=== PATIENT | male | born 1950 | race Two or more races ===

== ENCOUNTER 2019-08-27 11:25 | Inpatient (IN) | payer MEDICARE, MEDICAID ==
[~2019-08-27] VITALS: Ht 180.3 cm; Wt 64.4 kg
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
[2019-08-27 12:29] LABS: BASOPHILS % (AUTO) 0.4 % (0.0-2.0); EOSINOPHILS % (AUTO) 0.6 % (0.0-6.0); HEMATOCRIT 24 % (39-51); HEMOGLOBIN 7.5 g/dL (13.5-17.5); LYMPHOCYTES % (AUTO) 10.6 % (20.0-44.0); MEAN CORPUSCULAR HGB CONC 32 g/dl (31.0-36.0); MEAN CORPUSCULAR VOLUME 80 fL (80-96); MONOCYTES # (AUTO) 0.7 /CMM (0.1-1.30); MONOCYTES % (AUTO) 7.8 % (2.0-12.0); NEUTROPHILS # (AUTO) 7.5 /CMM (1.8-8.9); NEUTROPHILS % (AUTO) 80.6 % (43.0-81.0); PLATELET COUNT (AUTO) 390 /CMM (150-450); RED BLOOD CELL COUNT(AUTO) 2.96 MIL/uL (4.5-6.0); WHITE BLOOD COUNT (AUTO) 9.3 K/uL (4.3-11.0)
--- NOTE | 2019-08-27 12:33 | NUR ---
CALLED NURSING SUP FOR M/S BED.
[2019-08-27 12:35] LABS: CALCIUM, SERUM 8.3 mg/dL (8.5-10.1); CARBON DIOXIDE 30 mmol/L (21-32); CHLORIDE 104 mmol/L (98-107); CREATININE 1.4 mg/dL (0.6-1.3); GLUCOSE 74 mg/dL (74-106); POTASSIUM 3.9 mmol/L (3.5-5.1); SODIUM SERUM 140 mmol/L (136-145); UREA NITROGEN, BLOOD 41 mg/dL (7-18)
--- NOTE | 2019-08-27 12:51 | NUR ---
CALLED NURSING SUP FOR TELE BED UPGRADE.
--- NOTE | 2019-08-27 13:36 | NUR ---
NURSING SUP GAVE 116-1.
[2019-08-27] MEDS: ASPIRIN 325 MG TABLET PO SCH (15:00)
[2019-08-27] MEDS ORDERED: HYDROCODONE/APAP 5/325MG 1 EACH TABLET PO PRN (15:00)
[2019-08-27] MEDS ORDERED: MAG HYDROX/AL HYDROX/SIMETH 30 ML UDC PO PRN (15:00)
[2019-08-27] MEDS ORDERED: Z GUARD REMEDY 2 OZ OINT TP PRN (15:00)
[2019-08-27] MEDS ORDERED: MAGNESIUM HYDROXIDE 30 ML UDC PO PRN (15:00)
[2019-08-27] MEDS ORDERED: ONDANSETRON HCL/PF 4 MG/2 ML VIAL IVP PRN (15:00)
--- NOTE | 2019-08-27 16:17 | NUR ---
ROOM CHANGED TO ROOM 111-1
--- NOTE | 2019-08-27 16:30 | NUR ---
REPORT GIVEN TO ENTRY PROCESSOR FOR CONTINUITY OF CARE ON TELEMETRY UNIT
--- NOTE | 2019-08-27 17:00 | NUR ---
SEAM HAMMERER NOTES RECEIVED PATIENT FROM ER ALERT, ORIENTED X3 NO SOB OR ACUTE DISTRESS NOTED. PATIENT ON ROOM AIR. WITH PERIPHERAL IV INTACT PATENT. PATIENT ORIENTED TO ROOM. CALL LIGHT WITHIN REACH. BE IN LOW LOCKED POSITION. WILL CONTINUE OT MONITOR.
[2019-08-27] MEDS: IV NS 0.9% 1,000 ML IV PRN (18:23)
[2019-08-27] MEDS: METOPROLOL TARTRATE 25 MG TABLET PO SCH (18:26)
[2019-08-27] MEDS: ENOXAPARIN SODIUM 40 MG/0.4 ML DISP.SYRIN SQ SCH (18:27)
--- NOTE | 2019-08-27 19:26 | NUR ---
VETERINARY MEAT INSPECTOR NOTES PATIENT IN BED RESTING IN STABLE CONDITION. CARE ENDORSED TO PM SHIFT.
[2019-08-27 20:00] VITALS: BP 154/88
[2019-08-28] VITALS: BP 157/87
--- NOTE | 2019-08-28 02:24 | NUR ---
RN NOTES RECEIVED PATIENT AWAKE IN BED, ALERT AND ORIENTED IN NO APPARENT DISTRESS, BREATHING EVEN AND UNLABORED. ROOM AIR WELL TOLERATED. NO COMPLAINT OF PAIN OR DISCOMFORT. VERBALLY ABLE TO COMMUNICATE NEEDS. KEPT CLEAN AND DRY. WILL CONTINUE TO MONITOR.
[2019-08-28 04:00] VITALS: BP 121/79
--- NOTE | 2019-08-28 06:55 | NUR ---
RN NOTES LAB CALLED FOR CR VALUE FOR TROPONIN 2.13, TRENDING DOWN FROM 2.406 TO 2.592 TO 2.171 TO 2.13. PATIENT IS ASYMPTOMATIC. DENIES PAIN OR ANY DISCOMFORT. WILL ENDORSE TO NEXT SHIFT FOR CONTINUITY OF CARE.
[2019-08-28 07:28] LABS: BASOPHILS % (AUTO) 0.2 % (0.0-2.0); EOSINOPHILS % (AUTO) 0.4 % (0.0-6.0); HEMATOCRIT 23 % (39-51); HEMOGLOBIN 7.2 g/dL (13.5-17.5); LYMPHOCYTES # (AUTO) 2.6 /CMM (0.8-4.8); LYMPHOCYTES % (AUTO) 22.6 % (20.0-44.0); MEAN CORPUSCULAR HGB CONC 31 g/dl (31.0-36.0); MEAN CORPUSCULAR VOLUME 80 fL (80-96); MONOCYTES # (AUTO) 0.6 /CMM (0.1-1.30); MONOCYTES % (AUTO) 4.9 % (2.0-12.0); NEUTROPHILS # (AUTO) 8.1 /CMM (1.8-8.9); NEUTROPHILS % (AUTO) 71.9 % (43.0-81.0); PLATELET COUNT (AUTO) 377 /CMM (150-450); RED BLOOD CELL COUNT(AUTO) 2.89 MIL/uL (4.5-6.0); WHITE BLOOD COUNT (AUTO) 11.3 K/uL (4.3-11.0)
[2019-08-28] MEDS: IV NS 0.9% 1,000 ML IV PRN ×2 (07:37→18:07)
[2019-08-28 07:47] LABS: CALCIUM, SERUM 7.7 mg/dL (8.5-10.1); CREATININE 1.2 mg/dL (0.6-1.3); MAGNESIUM 1.9 mg/dL (1.8-2.4); POTASSIUM 3.9 mmol/L (3.5-5.1)
[2019-08-28] MEDS: PANTOPRAZOLE 40 MG TABLET.DR PO SCH (07:49)
[2019-08-28 08:00] VITALS: BP 141/91
[2019-08-28] MEDS: ASPIRIN 325 MG TABLET PO SCH (08:00)
[2019-08-28] MEDS: METOPROLOL TARTRATE 25 MG TABLET PO SCH ×2 (08:01→22:06)
[2019-08-28 10:09] LABS: THYROID STIMULATING HORMONE 4.109 uIU/mL (0.358-3.74)
[2019-08-28 10:31] LABS: BAND % (MANUAL) 2 % (0.0-5.0); LYMPHOCYTES % (MANUAL) 9 % (16-48); MONOCYTES % (MANUAL) 10 % (0-11.0); NEUTROPHILS % (MANUAL) 79 (42-76)
[2019-08-28 12:00] VITALS: BP 118/74
--- NOTE | 2019-08-28 12:00 | NUR ---
RN NOTE: Occult blood stool was sent to lab. No overt bleeding noted.
[2019-08-28 14:40] LABS: OCCULT BLOOD STOOL NEGATIVE (NEGATIVE)
[2019-08-28 16:00] VITALS: BP 118/91
--- NOTE | 2019-08-28 19:24 | NUR ---
RN NOTE: Bedside report was given to LEIGH Dave for continuity of care. Patient ate 75-100% of his meals today. Unable to collect urine because patient has been using the diaper. Will endorse to sheet pile hammer operator nurse to collect urine.
[2019-08-28 20:00] VITALS: BP 133/76
[2019-08-28] MEDS: ENOXAPARIN SODIUM 40 MG/0.4 ML DISP.SYRIN SQ SCH (21:00)
[2019-08-29] VITALS: BP_SYST 157; BP_DIAS 70; BP_DIAS 90
[2019-08-29] MEDS: IV NS 0.9% 1,000 ML IV PRN ×3 (02:50→20:02)
[2019-08-29 04:00] VITALS: BP 166/93
--- NOTE | 2019-08-29 05:15 | NUR ---
rn notes in bed, sleeping. noted with air hunger but 02sat 98%. head of bed elevated. nasal cannula at 3L/min. vital signs wnl. RT aware. no chest pain, no elevated temp no complaint of pain or discomfort. alert and oriented. able to communicate needs. kept clean and dry. will endorse to next shift for continuity of care
[2019-08-29 07:36] LABS: APPEARANCE,URINE SL CLOUDY (CLEAR); BILIRUBIN,URINE NEGATIVE (NEGATIVE); BLOOD, URINE TRACE-INTA Ery/uL (NEGATIVE); COLOR,URINE YELLOW (YELLOW); KETONES,URINE NEGATIVE (NEGATIVE); LEUKOCYTE ESTERASE ,URINE NEGATIVE (NEGATIVE); NITRITE, URINE NEGATIVE (NEGATIVE); PROTEIN,URINE TRACE mg/dl (NEGATIVE); UGLUCOSE NEGATIVE (NEGATIVE)
[2019-08-29 07:40] LABS: CREATININE, URINE 93.2 MG/DL (30.0-125.0); URINE TOTAL PROTEIN 52.2 mg/dL (0-11.9)
[2019-08-29 08:00] VITALS: BP_SYST 110; BP_SYST 156; BP_DIAS 66; BP_DIAS 99
--- NOTE | 2019-08-29 08:00 | NUR ---
RN NOTES RECEIVED PATIENT IN THE BED A/O X3, UNKEMPT, NO ACUTE RESPIRATORY DISTRESS, V/S STABLE, ADMINISTERED SCHEDULED MEDICATION, PATIENT TELE [place] PVC ON BUNDLE OF BRANCH, PATIENT REFUSED PAIN, TURN AND REPOSITIONED IN THE BED. IN FUSING NS AT 125 ML/HR ON LEFT AC INTACT , CALL LIGHT WITHIN TO REACH, CONTINUED MONITORING.
[2019-08-29 08:23] LABS: BASOPHILS % (AUTO) 0.5 % (0.0-2.0); EOSINOPHILS % (AUTO) 0.2 % (0.0-6.0); HEMATOCRIT 25 % (39-51); HEMOGLOBIN 7.8 g/dL (13.5-17.5); LYMPHOCYTES # (AUTO) 2.5 /CMM (0.8-4.8); LYMPHOCYTES % (AUTO) 26.2 % (20.0-44.0); MEAN CORPUSCULAR HGB CONC 31 g/dl (31.0-36.0); MEAN CORPUSCULAR VOLUME 82 fL (80-96); MONOCYTES # (AUTO) 0.5 /CMM (0.1-1.30); MONOCYTES % (AUTO) 5.5 % (2.0-12.0); NEUTROPHILS # (AUTO) 6.4 /CMM (1.8-8.9); NEUTROPHILS % (AUTO) 67.6 % (43.0-81.0); PLATELET COUNT (AUTO) 390 /CMM (150-450); RED BLOOD CELL COUNT(AUTO) 3.08 MIL/uL (4.5-6.0); WHITE BLOOD COUNT (AUTO) 9.5 K/uL (4.3-11.0)
[2019-08-29 08:25] LABS: ALANINE AMINOTRANSFERASE 63 U/L (12-78); ALBUMIN 2.2 g/dL (3.4-5.0); ALKALINE PHOSPHATASE 174 U/L (46-116); ASPARTATE AMINOTRANSFERASE 60 U/L (15-37); BILIRUBIN,TOTAL 0.5 mg/dL (0.2-1.0); CARBON DIOXIDE 24 mmol/L (21-32); CHLORIDE 108 mmol/L (98-107); CREATININE 1.1 mg/dL (0.6-1.3); GLUCOSE 67 mg/dL (74-106); MAGNESIUM 1.9 mg/dL (1.8-2.4); POTASSIUM 3.9 mmol/L (3.5-5.1); SODIUM SERUM 141 mmol/L (136-145); UREA NITROGEN, BLOOD 26 mg/dL (7-18)
[2019-08-29 08:27] LABS: CREATINE KINASE, TOTAL 188 U/L (39-308)
[2019-08-29 08:44] LABS: BACTERIA,URINE Many /HPF (None Seen); SQUAMOUS EPITHELIAL CELL,UR Rare /HPF (None Seen)
[2019-08-29] MEDS: ASPIRIN 325 MG TABLET PO SCH (09:25)
[2019-08-29] MEDS: METOPROLOL TARTRATE 25 MG TABLET PO SCH ×2 (09:25→20:54)
[2019-08-29] MEDS: PANTOPRAZOLE 40 MG TABLET.DR PO SCH (09:25)
[2019-08-29 10:11] LABS: LYMPHOCYTES % (MANUAL) 6 % (16-48); MONOCYTES % (MANUAL) 11 % (0-11.0); NEUTROPHILS % (MANUAL) 83 (42-76)
--- NOTE | 2019-08-29 11:00 | NUR ---
RN NOTES PATIENT WITH THE PT AT THIS TIME, GET OUT OF PAIN, BUT UNSTABLE GAIT, ASSISTED BACK TO THE BED.
--- NOTE | 2019-08-29 11:35 | NUR ---
RN NOTES PER ELECTROPLATING WORKER Dr. SALAZAR D/C TELE TO [facility], CONTINUED MONITORING.
[2019-08-29 12:00] VITALS: BP 148/80
[2019-08-29 13:07] LABS: EOSINOPHIL,URINE None Seen
[2019-08-29] MEDS: LISINOPRIL (5MG) 5 MG TABLET PO SCH (13:08)
[2019-08-29] MEDS: SOD FERRIC GLUC 125 MG in IV NS 0.9% 100 ML IV SCH (14:55)
[2019-08-29 16:00] VITALS: BP 162/100
--- NOTE | 2019-08-29 18:00 | NUR ---
RN NOTES PATIENT STABLE IN THE BED REFUSED PAIN, V/S STABLE, ADMINISTERED SCHEDULED MEDICATION, PATIENT ABLE TO TURN AND REPOSTION SELF IN THE BED, INFUSING NS AT 125 ML /HR ,INTACT, PATIENT TOLERATED DINNER WELL. CALL LIGHT WITHIN TO REACH. ENDORSED ONCOMING NURSE FOLLOW PLAN OF CARE.
[2019-08-29 20:00] VITALS: BP 170/94
[2019-08-29] MEDS: ENOXAPARIN SODIUM 40 MG/0.4 ML DISP.SYRIN SQ SCH (20:57)
--- NOTE | 2019-08-30 02:42 | NUR ---
rn notes comfortably resting in bed with no distress noted. head of bed elevated. nasal cannula at 3L/min tolerating well. vital signs wnl. RT aware. no chest pain, no elevated temp no complaint of pain or discomfort. alert and oriented. able to communicate needs. kept clean and dry. vital signs wnl. will endorse to next shift for continuity of care
[2019-08-30 04:00] VITALS: BP 167/94
[2019-08-30] MEDS: IV NS 0.9% 1,000 ML IV PRN ×2 (05:43→14:25)
[2019-08-30] MEDS: PANTOPRAZOLE 40 MG TABLET.DR PO SCH (07:30)
--- NOTE | 2019-08-30 07:39 | NUR ---
RN OPENING NOTES RECEIVED PATIENT IN BED, A/OX 3. VERBALLY RESPONSIVE AND ABLE TO MAKE NEEDS KNOWN. DENIES ANY PAIN OR DISCOMFORT AT THE MOMENT. ON NASAL CANNULA @3L. SATURATING WELL @95%. IV ACCESS ON R HAND #22 RUNNING NS 0.9 @125ML/HR WITH REMAINING 700ML OM THE BAG. NO SIGNS OF INFILTRATION NOTED. SAFETY MEASURES IN PLACE, BED IN LOWEST AND LOCKED POSITION. CALL LIGHT WITHIN REACH. WILL CONTINUE TO MONITOR
[2019-08-30 08:00] VITALS: BP 142/82
[2019-08-30 08:14] LABS: CALCIUM, SERUM 8.1 mg/dL (8.5-10.1); MAGNESIUM 1.9 mg/dL (1.8-2.4); PHOSPHORUS 2.9 mg/dL (2.5-4.9); POTASSIUM 4.2 mmol/L (3.5-5.1)
[2019-08-30 08:21] LABS: BASOPHILS # (AUTO) 0.1 /CMM (0.0-0.2); BASOPHILS % (AUTO) 0.8 % (0.0-2.0); HEMATOCRIT 24 % (39-51); HEMOGLOBIN 7.4 g/dL (13.5-17.5); LYMPHOCYTES # (AUTO) 1.9 /CMM (0.8-4.8); LYMPHOCYTES % (AUTO) 19.1 % (20.0-44.0); MEAN CORPUSCULAR HGB CONC 31 g/dl (31.0-36.0); MEAN CORPUSCULAR VOLUME 82 fL (80-96); MONOCYTES # (AUTO) 0.5 /CMM (0.1-1.30); MONOCYTES % (AUTO) 5.1 % (2.0-12.0); NEUTROPHILS # (AUTO) 7.6 /CMM (1.8-8.9); PLATELET COUNT (AUTO) 373 /CMM (150-450); RED BLOOD CELL COUNT(AUTO) 2.88 MIL/uL (4.5-6.0); WHITE BLOOD COUNT (AUTO) 10.1 K/uL (4.3-11.0)
[2019-08-30 08:34] VITALS: BP 142/82
[2019-08-30] MEDS: METOPROLOL TARTRATE 25 MG TABLET PO SCH ×2 (08:47→21:59)
[2019-08-30] MEDS: LISINOPRIL (5MG) 5 MG TABLET PO SCH (08:47)
[2019-08-30] MEDS: ASPIRIN 325 MG TABLET PO SCH (08:47)
[2019-08-30 09:07] LABS: BAND % (MANUAL) 4 % (0.0-5.0); LYMPHOCYTES % (MANUAL) 12 % (16-48); METAMYELOCYTES % 1 % (0-0); MONOCYTES % (MANUAL) 4 % (0-11.0); NEUTROPHILS % (MANUAL) 79 (42-76)
[2019-08-30] MEDS ORDERED: LISINOPRIL (10MG) 10 MG TABLET PO SCH (10:30)
[2019-08-30] MEDS ORDERED: LISINOPRIL (5MG) 5 MG TABLET PO ONE (11:00)
--- NOTE | 2019-08-30 11:06 | NUR ---
WOUND CARE CONSULT: PT SEEN THIS AM FOR SKIN ASSESSMENT AND NOTED TO HAVE DRY BLACK TOES TO LEFT FOOT, INTACT DEEP TISSUE INJURIES TO RT LATERAL FOOT AND SCARRING TO LEFT HIP AREA, PRESENT ON ADMISSION. DPM CONSULT REQUESTED AND DR ZENDEJAS NOTIFIED OF CONSULT REQUEST. RECOMMENDATIONS MADE FOR SKIN PROTECTION. DISCUSSED WITH NURSING STAFF. PT ABLE TO ASSIST WITH TURNING AND REPOSITIONING IN BED. WILL SEE PRN. WINTERS IN AGREEMENT WITH PLAN OF CARE. Addendum: 08/30/19 at 1108 by CAMERON THOMSON WNDNU Amended: Links added.
[2019-08-30] MEDS: SOD FERRIC GLUC 125 MG in IV NS 0.9% 100 ML IV SCH (14:21)
[2019-08-30 16:00] VITALS: BP 164/84
[2019-08-30 16:10] LABS: *SPE A/G RATIO 0.8 (0.7-1.7); *SPE ALBUMIN 2.4 g/dL (2.9-4.4); *SPE ALPHA-1-GLOBULIN 0.3 g/dL (0.0-0.4); *SPE ALPHA-2-GLOBULIN 0.6 g/dL (0.4-1.0); *SPE BETA GLOBULIN 0.8 g/dL (0.7-1.3); *SPE M-SPIKE Not Observed g/dL (Not Observed); *SPEGAMMA GLOBULIN 1.3 g/dL (0.4-1.8)
[2019-08-30] MEDS: LISINOPRIL (10MG) 10 MG TABLET PO SCH (16:11)
--- NOTE | 2019-08-30 19:15 | NUR ---
RN PM OPENING NOTES BEDSIDE REPORT RECIEVED FROM HILDA ABRAHAM. PATIENT IN BED, A/O X3. VERBALLY RESPONSIVE AND ABLE TO MAKE NEEDS KNOWN. ON NASAL CANNULA @ 3L. IV ACCESS ON R HAND #22 WITH NS 0.9% @125ML/HR, INTACT, PATENT INFUSING. NO SIGNS OF INFILTRATION NOTED. BED IN LOWEST POSITIONED AND LOCKED. BED DOWN AND LOCKED. CALL LIGHT WITHIN REACH. WILL CONT TO MONITOR.
--- NOTE | 2019-08-30 19:21 | NUR ---
RN CLOSING NOTES PATIENT IN BED, A/O X3. VERBALLY RESPONSIVE AND ABLE TO MAKE NEEDS KNOWN. ON NASAL CANNULA @ 3L, SATURATING WELL @ 97%. IV ACCESS ON R HAND #22 WITH NS 0.9% @125ML/HR, INTACT, PATENT AND FLUSHED WELL. NO SIGNS OF INFILTRATION NOTED. KEPT CLEAN AND DRY. BED IN LOWEST POSITIONED AND LOCKED. SAFETY MEASURES APPLIED DURING THE ENTIRE SHIFT. CALL LIGHT WITHIN REACH. ALL NEEDS MET. ENDORSED TO PM RN FOR MICHELA.
[2019-08-30 20:00] VITALS: BP 139/85
[2019-08-30] MEDS: ENOXAPARIN SODIUM 40 MG/0.4 ML DISP.SYRIN SQ SCH (21:58)
--- NOTE | 2019-08-30 23:00 | NUR ---
PATINT FOUND SITTING AT SIDE OF BED WITH IV REMOVED. PATIENT STATES. "I GUESS I JUST SAT UP TO FAST AND IT CAME OUT. DRESSING APLIED TO RIGHT IV CATHETER INTACT. DENIES PAIN AT SITE. SITE IS MINORLY SWOLLEN. ENCOURAGED PATIENT OT ELEVATE HAND ON PILLOW. ATTEMPTED IV INSERTION X2 BUT WAS UNSUCCESSFUL. ASKED CHARGE NURSE LINDSAY IF HE COULD TAKE A LOOK.
--- NOTE | 2019-08-30 23:45 | NUR ---
LINDSAY ABRAHAM SUCCESSFULLY INSERTED 22 GAUGE RIGHT UPPER ARM FLUSHES AND IS PATENT. NO S/S OF INFILTRATION.
[2019-08-31] VITALS (29 sets, daily range): BP systolic 68–146; BP diastolic 29–85
[2019-08-31] MEDS ORDERED: ALBUTEROL FS 2.5 MG/3 ML VIAL.NEB NEB PRN (00:30)
--- NOTE | 2019-08-31 01:16 | NUR ---
PT C/O SOB, PT HAS NOTICEABLE SWELLING. NATA CONTACTED EARLIER FOR PT C/O SOB AND NEW ORDER FOR ALBUTEROL RECIEVED. AFTER THE ALBUTEROL TREATMENT PATIENT REPORTS SOB IMPROVED BUT UPON AUSCULTATION PATIENT HAS WHEEZING BREATH SOUNDS BILATERALLY AND PATIENT IS NOTED TO HAVE MAKED SWELLING IN HANDS AND FEET. NATA CONTACTED AGAIN TO REVIEW THESE FINDINGS. TUSHAR PERDOMO RECOMMENDED TO DC IVF THIS AM OF 08/30/19. NEW ORDERS TO DC IVF AND TO PERFORM CXR RECIEVED. WILL CONT TO MONITOR PATIENT.
[2019-08-31] MEDS ORDERED: FUROSEMIDE 100 MG/10 ML VIAL IV ONE (06:30)
--- NOTE | 2019-08-31 06:33 | NUR ---
Dr. Pete in to see the patient. updated on patient condition. states he will be writing new orders.
--- NOTE | 2019-08-31 06:34 | NUR ---
RN PM CLOSING NOTES PATIENT IN BED BREATHILABORED AT 24 PATIENT IS LETHARGIC ON 5LNC. BED DOWN LOCKED SR X2. PATIENT HAS BILATERAL WHEEZING AND BREATH SOUNDS ARE WET. DR. LANG IN TO SEE PATIENT AND STATES HE WILL BE PRESCRIBING SOME DIURETICS FOR THE AM. PATIENT BOOSTED IN BED. CALL LIGHT IN REACH. BED ALARM ACTIVE WILL CONT TO MONITOR.
[2019-08-31] MEDS: PANTOPRAZOLE 40 MG TABLET.DR PO SCH (07:01)
[2019-08-31 07:08] LABS: PTH, INTACT 92 pg/mL (15-65)
--- NOTE | 2019-08-31 07:23 | NUR ---
PATIENT PULLED OUT IV FROM RIGHT UPPER ARM. ASKED WHY HE DID THIS PATIENT STATES. "I DON'T KNOW I JUST DIDNT LIKE IT." NEW IV STARTED TO LEFT FOREARM 22 GAUGE.
[2019-08-31] MEDS ORDERED: VANCOMYCIN 1 GM in IV D5W 250 ML IV ONE (07:30)
[2019-08-31] MEDS: LISINOPRIL (10MG) 10 MG TABLET PO SCH ×2 (08:23→17:00)
[2019-08-31] MEDS: METOPROLOL TARTRATE 25 MG TABLET PO SCH ×2 (08:23→21:00)
[2019-08-31] MEDS: ASPIRIN 325 MG TABLET PO SCH (08:23)
[2019-08-31 08:35] LABS: BASOPHILS % (AUTO) 0.2 % (0.0-2.0); HEMATOCRIT 23 % (39-51); LYMPHOCYTES # (AUTO) 0.4 /CMM (0.8-4.8); LYMPHOCYTES % (AUTO) 2.5 % (20.0-44.0); MEAN CORPUSCULAR HGB CONC 30 g/dl (31.0-36.0); MEAN CORPUSCULAR VOLUME 84 fL (80-96); MONOCYTES # (AUTO) 0.9 /CMM (0.1-1.30); MONOCYTES % (AUTO) 6.4 % (2.0-12.0); NEUTROPHILS # (AUTO) 13.5 /CMM (1.8-8.9); NEUTROPHILS % (AUTO) 90.9 % (43.0-81.0); PLATELET COUNT (AUTO) 385 /CMM (150-450); RED BLOOD CELL COUNT(AUTO) 2.79 MIL/uL (4.5-6.0); WHITE BLOOD COUNT (AUTO) 14.8 K/uL (4.3-11.0)
[2019-08-31 08:47] LABS: ALBUMIN 2.1 g/dL (3.4-5.0); BILIRUBIN,TOTAL 0.3 mg/dL (0.2-1.0); CALCIUM, SERUM 8.2 mg/dL (8.5-10.1); MAGNESIUM 1.8 mg/dL (1.8-2.4); PHOSPHORUS 3.2 mg/dL (2.5-4.9); POTASSIUM 4.4 mmol/L (3.5-5.1); TOTAL PROTEIN, SERUM 6.2 g/dL (6.4-8.2)
[2019-08-31] MEDS: ZOSYN IVPB 3.375 G in IV D5W 50ml IV SCH ×3 (09:20→18:24)
--- NOTE | 2019-08-31 10:57 | NUR ---
MS/RN NOTES RECEIVED A PHONE CALL FROM LAB REGARDING HGB OF 7.0, RELAYED RESULTS TO DR. BUI WITH NO NEW ORDERS AT THIS TIME. WILL CONTINUE TO MONITOR PATIENT CLOSELY.
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
[2019-08-31] MEDS ORDERED: FEE PK DOSING 1 MIN EA MC ONE (11:49)
--- NOTE | 2019-08-31 12:30 | NUR ---
MS/RN NOTES WHILE MAKING ROUTINE ROUNDS NOTICED PATIENT TO BE HAVING LABORED BREATHING. O2 SATURATION WAS CHECKED AND IT WAS 78. PATIENT WAS IMMEDIATELY PLACED ON NON REBREATHER MASK. RT WAS ALSO CALLED TO DO DEEP SUCTION VIA NASAL. RT WAS ABLE TO TAKE OUT 100CC OF FLUIDS. PATIENT WAS PLACED BACK TO NON-REBREATHER MASK WITH O2 SATURATION OF 97. CONTINUE TO MONITOR PATIENT CLOSELY. RT STAYED AT BEDSIDE FOR O2 TITRATION IF NEEDED.
--- NOTE | 2019-08-31 12:45 | NUR ---
MS/RN NOTES PATIENT WAS SEEN AND EVALUATED BY DR. LANG. WITH ORDERS TO TRANSFER PATIENT TO ICU. PREPARING PT FOR TRANSFER. WILL CONTINUE TO MONITOR CLOSELY.
--- NOTE | 2019-08-31 12:50 | NUR ---
MS/RN NOTES 1250 - TICKET SALES AGENT WAS CALLED BY CHARGE NURSE NARANJO. 1253 - TICKET SALES AGENT TEAM ARRIVED AT THE UNIT. 1258 - PATIENT WAS INTUBATED BY DR. AVILA FROM ER AT BEDSIDE. 1300 - PATIENT WAS TRANSFERRED TO ICU. 1310 - REPORT WAS GIVEN TO CHARGE NURSE LEIGH MELGAR IN ICU.
--- NOTE | 2019-08-31 13:02 | NUR ---
RT PATIENT ORALLY INTUBATED IN ANN WITH A 8.0 ETT SECURED AT 25CM MID LIP. BILAT BREATH SOUNDS HEARD. POSITIVE CO2 DETECTOR COLOR CHANGE. PATIENT TRANSFERRED TO ICU AND PLACED ON [facility] WITH SETTINGS PER DR LANG. AC18, 600, 100% +0. ALARMS CHECKED + AUDIBLE. AMBU BAG AT HOB. PATIENT NON RESPONSIVE AT THIS TIME. Addendum: 08/31/19 at 1320 by CARLIN MERRITT RT Amended: Links added.
[2019-08-31 13:15] LABS: ABG BASE EXCESS -3.7 mmol/L; ABG OXYGEN SATURATION 97.2 % (92.0-98.5); ABG PCO2 126.2 mmHg (35.0-45.0); ABG PH 6.977 (7.350-7.450); ABG PO2 139.1 mmHg (75.0-100.0); AaDO2 298.8 mmHg; COHb 1.5 % (0.5-1.5); MetHb 0.4 % (0.0-1.5); O2Hb 95.4 % (94.0-97.0); SITE, ABG Left Radial; VENT MODE, BG NON REBREATHER
[2019-08-31] MEDS ORDERED: NOREPINEPHRINE 8 MG in IV D5W 500 ML IV PRN (13:30)
[2019-08-31] MEDS ORDERED: IV NS 0.9% 250 ML BAG IV ONE (13:30)
[2019-08-31] MEDS: SOD FERRIC GLUC 125 MG in IV NS 0.9% 100 ML IV SCH ×2 (14:00→19:04)
--- NOTE | 2019-08-31 15:00 | NUR ---
ZOSYN SCHEDULED FOR 1400 GIVEN NOW AFTER PT TRANSFERRED TO ICU.
[2019-08-31] MEDS: PROPOFOL 100 ML IV PRN ×2 (15:07→19:11)
[2019-08-31] MEDS: DOPamine 400 MG in IV D5W 250 ML IV PRN (15:09)
[2019-08-31 15:13] LABS: ABG OXYGEN SATURATION 99.4 % (92.0-98.5); ABG PCO2 43.7 mmHg (35.0-45.0); ABG PH 7.378 (7.350-7.450); ABG PO2 328.4 mmHg (75.0-100.0); AaDO2 340.9 mmHg; COHb 1.1 % (0.5-1.5); MetHb 0.9 % (0.0-1.5); O2Hb 97.4 % (94.0-97.0); SITE, ABG Right Radial; VENT MODE, BG AC 18 600 +0 100%
[2019-08-31] MEDS: VANCOMYCIN 1 GM in IV D5W 250 ML IV SCH (18:24)
[2019-08-31] MEDS: ENOXAPARIN SODIUM 40 MG/0.4 ML DISP.SYRIN SQ SCH (22:49)
[2019-09-01] VITALS (96 sets, daily range): BP systolic 81–129; BP diastolic 38–90
[2019-09-01] MEDS: ZOSYN IVPB 3.375 G in IV D5W 50ml IV SCH ×5 (00:03→23:30)
[2019-09-01] MEDS: PROPOFOL 100 ML IV PRN ×5 (00:04→23:30)
[2019-09-01] MEDS: DOPamine 400 MG in IV D5W 250 ML IV PRN ×2 (05:26→17:07)
[2019-09-01 05:43] LABS: BASOPHILS # (AUTO) 0.1 /CMM (0.0-0.2); BASOPHILS % (AUTO) 0.3 % (0.0-2.0); EOSINOPHILS % (AUTO) 0.1 % (0.0-6.0); HEMATOCRIT 21 % (39-51); LYMPHOCYTES % (AUTO) 12.9 % (20.0-44.0); MEAN CORPUSCULAR HGB CONC 31 g/dl (31.0-36.0); MEAN CORPUSCULAR VOLUME 81 fL (80-96); MONOCYTES # (AUTO) 0.5 /CMM (0.1-1.30); NEUTROPHILS # (AUTO) 13.2 /CMM (1.8-8.9); NEUTROPHILS % (AUTO) 83.7 % (43.0-81.0); PLATELET COUNT (AUTO) 374 /CMM (150-450); RED BLOOD CELL COUNT(AUTO) 2.64 MIL/uL (4.5-6.0); WHITE BLOOD COUNT (AUTO) 15.7 K/uL (4.3-11.0)
[2019-09-01 05:46] LABS: ALBUMIN 1.8 g/dL (3.4-5.0); BILIRUBIN,TOTAL 0.4 mg/dL (0.2-1.0); CREATININE 1.2 mg/dL (0.6-1.3); MAGNESIUM 1.5 mg/dL (1.8-2.4); PHOSPHORUS 3.1 mg/dL (2.5-4.9); POTASSIUM 3.4 mmol/L (3.5-5.1); TOTAL PROTEIN, SERUM 5.5 g/dL (6.4-8.2)
[2019-09-01 05:57] LABS: HEMOGLOBIN 6.6 g/dL (13.5-17.5)
[2019-09-01 06:14] LABS: LYMPHOCYTES % (MANUAL) 5 % (16-48); MONOCYTES % (MANUAL) 3 % (0-11.0); NEUTROPHILS % (MANUAL) 92 (42-76)
--- NOTE | 2019-09-01 06:15 | NUR ---
ESCROW SECRETARY: NO SIGNIFICANT MICHELA DURING THE SHIFT. REMAINED INTUBATED WT VENT SETTINGS ORDERED. NO ACUTE DISTRESS, NO EVIDENCE OF DISCOMFORT. SEDATED ON DIPRIVAN AT 35MCG/KG/MIN, WITHDRAWS TO PAIN STIMULI. CONTINUE ON DOPAMINE AT 5MCG/KG/MIN, SR-SB ON FLOORING INSTALLER WT HR IN THE 50s-60s. AFEBRILE. BILAT. NO S/S OF COMPLICATIONS ON LEFT IJ TLC. OGT INTACT AND CLAMPED; WRIST RESTRAINTS IN PLACE TO PREVENT SELF EXTUBATION. SKIN AND CIRCULATION WNL. F/C PATENT AND INTACT DRAINING YELLOW URINE TO GRAVITY. AM LABS RECEIVED WT HGB=6.6 (NO ACTIVE BLEEDING), MG=1.5. CALLED AND NOTIFIED DR. AKBAR AND RELAYED ALL LAB RESULTS WT CURRENT MEDS. WT NEW ORDERS. NOTED AND CARRIED OUT. SAFETY PRECAUTION NOTED AT ALL TIMES.
[2019-09-01] MEDS: VANCOMYCIN 1 GM in IV D5W 250 ML IV SCH ×2 (06:22→18:25)
[2019-09-01] MEDS: Magnesium 1GM/D5W 100ML PREMIX 100 ML IV SCH ×3 (06:36→08:46)
[2019-09-01] MEDS ORDERED: POTASSIUM CHLORIDE 20 MEQ POWDER PACKET NG SCH (07:00)
--- NOTE | 2019-09-01 07:15 | NUR ---
RN INITIAL NOTES RECEIVED PT INTUBATED, ON VENT. NO RESPIRATORY DISTRESS NOTED. NO SOB NOTED. NO SIGNS OF PAIN NOTED. PT SEDATED, ON DIPRIVAN AT 35MCG/KG/MIN. ON DOPAMINE AT 5MCG/KG/MIN. WILL TITRATE ACCORDINGLY. LEFT IJ TLC IN PLACE. OG IN PLACE, CLAMPED. FC IN PLACE. NO HEMATURIA NOTED. BLE ELEVATED. WILL MONITOR
[2019-09-01] MEDS: FUROSEMIDE 40 MG/4 ML VIAL IV SCH ×2 (07:37→11:26)
[2019-09-01] MEDS: PANTOPRAZOLE 40 MG TABLET.DR PO SCH (07:37)
[2019-09-01 08:04] LABS: ABG BASE EXCESS -0.6 mmol/L; ABG PCO2 38.3 mmHg (35.0-45.0); ABG PH 7.413 (7.350-7.450); ABG PO2 74.3 mmHg (75.0-100.0); AaDO2 239.1 mmHg; COHb 0.8 % (0.5-1.5); O2Hb 92.3 % (94.0-97.0); PEEP,BG 0 cm H2O; SITE, ABG Left Radial
--- NOTE | 2019-09-01 11:00 | NUR ---
RN NOTES 0900 SEEN AND EXAMINED BY DR LANG. PT INTUBATED, ON VENT. OFF SEDATION. DOES NOT FOLLOW COMMANDS, RESPONDS TO PAIN. REMAINS ON DOPAMINE DRIP, WILL TITRATE ACCORDINGLY. 1030 SEEN AND EXAMINED BY DR BUI. AWARE OF LAB VALUES AND CXR RESULT. POTASSIUM 3.4 AND MAGNESIUM 1.5, HAS REPLACEMENT ORDERED. HGB 6.6, HCT 21. HAS ORDER FOR 1 UNIT OF PRBC. AWAITING FOR BLOOD BACK. NO SIGNS OF ACTIVE BLEEDING NOTED. WILL CLOSELY MONITOR
[2019-09-01] MEDS: SOD FERRIC GLUC 125 MG in IV NS 0.9% 100 ML IV SCH (13:50)
--- NOTE | 2019-09-01 18:37 | NUR ---
RN CLOSING NOTES PT REMAINS INTUBATED, ON VENT. NO RESPIRATORY DISTRESS NOTED. NO SOB NOTED. PT SEDATED, ON DIPRIVAN AT 35MCG/KG/MIN. REMAINS ON DOPAMINE AT 4MCG/KG/MIN. OG CLAMPED. 1 UNIT OF PRBC TRANSFUSING. NO REACTION NOTED. VS WNL. FC IN PLACE. KEPT CLEAN AND REPOSITIONED Q2. BLE ELEVATED. KEPT COMFORTABLE. WILL ENDORSE FOR CONTINUITY OF CARE.
--- NOTE | 2019-09-01 20:00 | NUR ---
TARGETING ACQUISITION OFFICER NOTES Received patient DX: NSTEMI.Intubated on full vent support sedated on Diprivan gtt at 35 mcg. Per monitor SB 40's-50's with Dopamine gtt infusing at 4 mcg via LIJ TLC will titrate accordingly. Site intact.1 unit PRBC infusing.VSS.OGT patent,placement verified and clamped.FC to gravity drainage with moderate urine output.Will turn and reposition Q 2hrs.Continue monitoring.
--- NOTE | 2019-09-01 20:45 | NUR ---
LEGAL ADVISER NOTES Above blood transfusion completed without adverse reaction.VSS.
[2019-09-02] VITALS (87 sets, daily range): BP systolic 63–135; BP diastolic 15–72
[2019-09-02 05:18] LABS: CALCIUM, SERUM 7.9 mg/dL (8.5-10.1); CREATININE 1.2 mg/dL (0.6-1.3)
[2019-09-02] MEDS: PROPOFOL 100 ML IV PRN ×3 (05:22→20:22)
[2019-09-02] MEDS: ZOSYN IVPB 3.375 G in IV D5W 50ml IV SCH ×4 (05:30→23:51)
[2019-09-02 05:36] LABS: POTASSIUM 2.8 mmol/L (3.5-5.1)
--- NOTE | 2019-09-02 05:45 | NUR ---
DAYLIGHT DRILLER NOTES Patient resting.No acute distress noted.Remains SB 40's-50's.Dopamine gtt titrated now @ 4 mcg.Diprivan gtt @ 35 mcg.Bed bath rendered.Oral care done.Wound care done.Was turned and repositioned q 2 hrs offloading pressure points.No bm noted.AM labs resulted K+ 2.8 Will notify MD for orders.
[2019-09-02] MEDS ORDERED: VANCOMYCIN 0.75 GM in IV D5W 250 ML IV SCH (06:00)
--- NOTE | 2019-09-02 07:00 | NUR ---
OVERNIGHT STOCKER NOTES RECEIVED PT ON BED, INTUBATED, SEDATED ON DIPRIVAN GTT AT 35 MCG/KG/MIN, ON TELE SB HR IN HIGH 40'S , DOPAMINE GTT AT 3 MCH/KG/MIN RUNNING , LEFT IJ TLC , L FA IV SITE G 20 AND R UPPER ARM IV SITE G 20 CLEAN,DRY AND INTACT, OG TUBE CLAMPED AT THIS TIME, FOLY DRINING TO GRAVITY, SR UPx 3, CALL LIGHT WITHIN EASY REACH, BED LOCKED AND IN LOWEST POSITION, CONTINUE TO MONITOR .
[2019-09-02] MEDS: POTASSIUM CL. PREMIX PERIPHER. 50 ML IV SCH ×8 (07:24→15:55)
--- NOTE | 2019-09-02 08:00 | NUR ---
RN NOTES DR LANG AT THE BEDSIDE , ORDER RECEIVED TO STOP THE DIPRIVAN IMMEDIATELY TO SEE HOW PT IS RESPONDING. MARY PHARMACIST NOTIFIED. CONTINUE TO MONITOR .
[2019-09-02] MEDS: PANTOPRAZOLE 40 MG TABLET.DR PO SCH (08:17)
[2019-09-02 08:37] LABS: BASOPHILS % (AUTO) 0.2 % (0.0-2.0); EOSINOPHILS % (AUTO) 0.6 % (0.0-6.0); HEMATOCRIT 25 % (39-51); HEMOGLOBIN 7.8 g/dL (13.5-17.5); LYMPHOCYTES # (AUTO) 1.4 /CMM (0.8-4.8); LYMPHOCYTES % (AUTO) 10.5 % (20.0-44.0); MEAN CORPUSCULAR HGB CONC 32 g/dl (31.0-36.0); MEAN CORPUSCULAR VOLUME 82 fL (80-96); MONOCYTES # (AUTO) 0.5 /CMM (0.1-1.30); MONOCYTES % (AUTO) 3.9 % (2.0-12.0); NEUTROPHILS # (AUTO) 11.2 /CMM (1.8-8.9); NEUTROPHILS % (AUTO) 84.8 % (43.0-81.0); PLATELET COUNT (AUTO) 352 /CMM (150-450); WHITE BLOOD COUNT (AUTO) 13.3 K/uL (4.3-11.0)
[2019-09-02] MEDS ORDERED: POTASSIUM CHLORIDE 20 MEQ POWDER PACKET NG SCH ×2 (09:30)
[2019-09-02 09:35] LABS: MAGNESIUM 1.8 mg/dL (1.8-2.4); PHOSPHORUS 3.5 mg/dL (2.5-4.9)
[2019-09-02 09:49] LABS: ABG BASE EXCESS 2.8 mmol/L; ABG OXYGEN SATURATION 97.8 % (92.0-98.5); ABG PCO2 40.9 mmHg (35.0-45.0); ABG PO2 117.2 mmHg (75.0-100.0); COHb 0.2 % (0.5-1.5); MetHb 0.6 % (0.0-1.5); PEEP,BG 0 cm H2O; SITE, ABG Right Radial; VT, ABG 550 mL
--- NOTE | 2019-09-02 12:59 | NUR ---
ET-TUBE PULLED BACK 2.5 CM PER MD ORDER. 23CM AT LEFT LIP LINE. Addendum: 09/02/19 at 1301 by ALYCE DAHL RT Amended: Links added.
--- NOTE | 2019-09-02 14:00 | NUR ---
RN NOTES BP STABLE, DOPAMINE TURNED OFF AT THIS TIME, CONTINUE TO MONITOR VSS .
[2019-09-02] MEDS: SOD FERRIC GLUC 125 MG in IV NS 0.9% 100 ML IV SCH (14:13)
--- NOTE | 2019-09-02 16:00 | NUR ---
RN NOTES ET TUBE SUCTIONING DONE, BP STABLE, CONTINUE TO MONITOR .
--- NOTE | 2019-09-02 18:19 | NUR ---
RN NOTES PT REMAINS INTUBATED AND SEDATED, ON DIPRIVAN AT 40 MCG/KG/ HR , IRIZARRY DRINING TO GRAVITY, IV SITES CLEAN, DRY AND INTACT, SR UP x3 CALL LIGHT WITHIN EASY REACH, BED LOCKED AND IN LOWEST POSITION, WILL ENDORSE TO HYDRAULIC PLUMBER HELPER NURSE FOR CONTINUITY OF CARE .
--- NOTE | 2019-09-02 19:43 | NUR ---
RECEIVED PT ORALLY INTUBATED WITH ETT 8.0 SECURED @ 23 CM LIP [facility] WITH NOTED SETTINGS PER MD ORDER. FLIGHT CREW SCHEDULER DONE. AMBU BAG AT BEDSIDE. VENT ALARMS ON AND AUDIBLE. SUCTIONED DONE PRN. NO RESPIRATORY DISTRESS NOTED AT THIS TIME. WILL CONTINUE TO MONITOR THE PT T/O SHIFT
--- NOTE | 2019-09-02 20:00 | NUR ---
Received patient orally intubated to vent with prescribed settings and well tolerated.SPO2 100%. Sedated on Diprivan gtt at 45 mcg.Patient awakens easily.SB 40's-50's.No acute distress note OGT patent,placement verified and clamped.FC to gravity.Turned and repositioned to comfort.
--- NOTE | 2019-09-02 20:30 | NUR ---
Patient hypotensive BP 79/29 HR 48 SB.Dopamine gtt restarted at 2 mcg and will titrate accordingly.Continue monitoring.
[2019-09-02] MEDS: DOPamine 400 MG in IV D5W 250 ML IV PRN (20:40)
[2019-09-03] VITALS (94 sets, daily range): BP systolic 82–139; BP diastolic 40–80
[2019-09-03] MEDS: PROPOFOL 100 ML IV PRN ×4 (00:20→21:28)
[2019-09-03 04:52] LABS: BILIRUBIN,TOTAL 0.5 mg/dL (0.2-1.0); CALCIUM, SERUM 7.9 mg/dL (8.5-10.1); CREATININE 1.1 mg/dL (0.6-1.3); MAGNESIUM 2.1 mg/dL (1.8-2.4); PHOSPHORUS 3.6 mg/dL (2.5-4.9); POTASSIUM 3.4 mmol/L (3.5-5.1); TOTAL PROTEIN, SERUM 5.1 g/dL (6.4-8.2)
[2019-09-03 05:19] LABS: ALBUMIN 1.3 g/dL (3.4-5.0)
[2019-09-03] MEDS: ZOSYN IVPB 3.375 G in IV D5W 50ml IV SCH ×3 (05:40→17:39)
[2019-09-03] MEDS ORDERED: IV NS 0.9% 250 ML IV ONE (06:00)
--- NOTE | 2019-09-03 06:15 | NUR ---
HEAD WAITER/WAITRESS NOTES Patient resting in no acute distress.VSS.Remains SB 40's.Dopamine gtt infusing at 1 mcg and will titrate accordingly.Diprivan gtt infusing at 45 mcg.Tolerating vent settings well. Secretions suctioned.Oral care done.Wound care done.Bathed and linens changed.Turned and repositioned.AM Lab resulted Albumin 1.3 relayed to no orders received. Will endorse to day shift for MICHELA.
[2019-09-03] MEDS ORDERED: POTASSIUM CHLORIDE 20 MEQ POWDER PACKET NG SCH (06:30)
--- NOTE | 2019-09-03 07:30 | NUR ---
RN NOTES RECEIVED REPORT FROM OUTGOING NURSE. PATIENT SEDATED WITH DIPRIVAN AT 45MCG/MIN. INTUBATED WITH ETT #8 AT 23CM ON THE LIP. TOLERATING CURRENT VENT SETTING FOLLOWS: AC 14, TV500, FI02 AT 40%, 0 PEEP. SATING 100% AT THIS TIME, PATIENT PEBBLES ON THE MONITOR WITH HR 44 AT THIS TIME. OGT IN PLACE, CLAMPED. STOMACH IS SOFT AND NONDISTENDED. G 18 ON THE R UPPER ARM, SALINE LOCKED. L IJ IN PLACE, WITH ONGOING PROPOFOL AND DOPAMINE AT 2MCG/MIN FOR BLOOD PRESSURE SUPPORT. IRIZARRY CATHETER IN PLACE, DRAINING WELL VIA GRAVITY TO GREENISH URINE. SAFETY MEASURES OBSERVED AND MAINTAINED. SRX2 RAISED. HOB ELEVATED, CALL LIGHT WITHIN REACH. WILL CONTINUE TO MONITOR PATIENT ACCORDINGLY. Addendum: 09/03/19 at 0829 by RAJI HOLDEN RN BILATERAL SOFT RESTRAINTS ON, REMOVE AND REPLACE, SKIN INTACT ON THE SITE OF PLACEMENT
--- NOTE | 2019-09-03 07:59 | NUR ---
RT Pt received orally intubated on mechanical ventilation with noted settings. Pt is currently sedated but responds to stimuli when suctioned. Vent is plugged into red outlet. No SOB or respiratory distress noted. Addendum: 09/03/19 at 1726 by DELILAH ROSALES RT Amended: Links added.
[2019-09-03] MEDS: PANTOPRAZOLE 40 MG TABLET.DR PO SCH (08:35)
[2019-09-03] MEDS: POTASSIUM CHLORIDE 20 MEQ POWDER PACKET GT SCH (09:06)
[2019-09-03 10:00] LABS: ABG BASE EXCESS 2.5 mmol/L; ABG OXYGEN SATURATION 94.8 % (92.0-98.5); ABG PCO2 38.5 mmHg (35.0-45.0); ABG PH 7.456 (7.350-7.450); ABG PO2 80.5 mmHg (75.0-100.0); AaDO2 160.4 mmHg; COHb 0.2 % (0.5-1.5); MetHb 0.7 % (0.0-1.5); O2Hb 93.9 % (94.0-97.0); PEEP,BG 0 cm H2O; SITE, ABG Right Radial; VT, ABG 550 mL
--- NOTE | 2019-09-03 19:28 | NUR ---
RN NOTES ENDORSED PATIENT FOR CONTINUITY OF CARE. NOT ON ANY FORM OF DISTRESS.TOLERATING VENT SETTINGS. NO INDICATION OF PAIN NOTED AT THIS TIME. PATIENT WITH ONGOING DIPRIVAN AT 25MCG/MIN, DOPAMINE AT 1MCG/MIN/ HOB ELEVATED. SAFETY MEASURES IN PLACE. CALL LIGHT WITHIN REACH
--- NOTE | 2019-09-03 20:14 | NUR ---
Pt [facility] on [facility] with ETT 8.0 @ 23cm lip. Vent setting as noted. Pt tolerating setting well, no sob or distress noted. Bilateral breath sounds noted. Accounts Receivable Specialist noted. Vent to red outlet. Alarms set and audible. Will continue to monitor. Addendum: 09/03/19 at 2017 by JEFFERSON AUGUSTIN RT Amended: Links added.
[2019-09-04] VITALS (42 sets, daily range): BP systolic 84–133; BP diastolic 50–99
[2019-09-04] MEDS: ZOSYN IVPB 3.375 G in IV D5W 50ml IV SCH ×5 (01:17→23:58)
[2019-09-04] MEDS: PROPOFOL 100 ML IV PRN ×4 (01:18→22:23)
[2019-09-04] MEDS: DOPamine 400 MG in IV D5W 250 ML IV PRN (04:21)
[2019-09-04 04:58] LABS: BASOPHILS % (AUTO) 0.3 % (0.0-2.0); EOSINOPHILS % (AUTO) 0.6 % (0.0-6.0); HEMATOCRIT 26 % (39-51); HEMOGLOBIN 8.2 g/dL (13.5-17.5); LYMPHOCYTES % (AUTO) 7.8 % (20.0-44.0); MEAN CORPUSCULAR HGB CONC 31 g/dl (31.0-36.0); MEAN CORPUSCULAR VOLUME 83 fL (80-96); MONOCYTES # (AUTO) 0.6 /CMM (0.1-1.30); MONOCYTES % (AUTO) 4.8 % (2.0-12.0); NEUTROPHILS # (AUTO) 11.1 /CMM (1.8-8.9); NEUTROPHILS % (AUTO) 86.5 % (43.0-81.0); PLATELET COUNT (AUTO) 365 /CMM (150-450); RED BLOOD CELL COUNT(AUTO) 3.14 MIL/uL (4.5-6.0); WHITE BLOOD COUNT (AUTO) 12.8 K/uL (4.3-11.0)
[2019-09-04 05:10] LABS: POTASSIUM 3.8 mmol/L (3.5-5.1)
--- NOTE | 2019-09-04 07:35 | NUR ---
ADULT SERVICES LIBRARIAN NOTE NO ACUTE DISTRESS NOTED. REMAINED STABLE DURING SHIFT. VENT SETTING WELL TOLERATED. ALL NEEDS ATTENDED TO PROMPTLY. REPOSITIONED Q2H. SUCTIONED NEEDED. KEPT CLEAN AND DRY. WILL ENDORSE TO NEXT SHIFT FOR CONTINUITY OF CARE.
--- NOTE | 2019-09-04 08:00 | NUR ---
RN NOTES SEEN AND EXAMINED BY DR. BUI. INFORMED MD ABOUT GREENISH URINE, PER MD "THAT IS NOT GREEN" ASKED MD IF HE WANT TO DO A TRIGLYCERIDE OR LIVER PANEL BUT THE MD SAID NOT AT THIS TIME.
[2019-09-04 08:46] LABS: LYMPHOCYTES % (MANUAL) 10 % (16-48); MONOCYTES % (MANUAL) 4 % (0-11.0); NEUTROPHILS % (MANUAL) 86 (42-76)
[2019-09-04 08:54] LABS: ABG BASE EXCESS 3.7 mmol/L; ABG OXYGEN SATURATION 96.5 % (92.0-98.5); ABG PCO2 40.4 mmHg (35.0-45.0); ABG PH 7.457 (7.350-7.450); ABG PO2 96.8 mmHg (75.0-100.0); AaDO2 141.9 mmHg; COHb 0.3 % (0.5-1.5); MetHb 0.7 % (0.0-1.5); O2Hb 95.5 % (94.0-97.0); PEEP,BG 0 cm H2O; SITE, ABG Right Radial; VT, ABG 550 mL
[2019-09-04] MEDS: PANTOPRAZOLE 40 MG TABLET.DR PO SCH (09:47)
[2019-09-04] MEDS: POTASSIUM CHLORIDE 20 MEQ POWDER PACKET GT SCH (09:47)
--- NOTE | 2019-09-04 14:55 | NUR ---
RT NOTE: PATIENT RECEIVED ORALLY INTUBATED WITH 8.0 ETT SECURED AT 23 CM MID LIP LINE ON MECHANICAL VENT. ALARMS VERIFIED AND AUDIBLE. VENT PLUGGED INTO RED OUTLET. AMBU BAG AT [facility].
--- NOTE | 2019-09-04 19:50 | NUR ---
FLOWER GROWER. INITIAL ASSESSMENT. RECEIVED THE PT REST ON THE BED,ORALLY INTUBATED. SEDATED WITH DIPRIVAN 40MCG/KG/MIN, PT IS AGITATED, DIPRIVAN TITRATED UP. ETT #8,LIP 23,AC 14,TV 550,FIO2 40%.SAT 98%. NO ACUTE DISTRESS NOTED. CLOUD SYSTEMS ADMINISTRATOR SHOWING S PEBBLES.TONY SOFT WRIST RESTRAINT CHECKED AND RELEASED. NO INJURY OR REDNESS NOTED. IV RT IJ TRIPLE LUMEN..DOPAMINE 2MCG /KG/MIN OGT INTACT. CLAMPED, HOB ELEVATED, WILL CONTINUE TO MONITOR VITALS.
[2019-09-04] MEDS: JEVITY 1.2 CAL 1,000 ML BOTTLE GT SCH (23:58)
[2019-09-05] VITALS (66 sets, daily range): BP systolic 69–140; BP diastolic 33–92
--- NOTE | 2019-09-05 00:31 | NUR ---
curriculum specialist. ogt feeding jevity 30 ml/h started. will continue to monitor residual
[2019-09-05] MEDS: PROPOFOL 100 ML IV PRN ×4 (02:23→22:25)
--- NOTE | 2019-09-05 04:14 | NUR ---
PRODUCTION TEAM MANAGER. ORAL ACRE, BED BATH GIVEN. LINEN CHANGED. REMAINING SAME VENT SETTING TOLERATED WELL. SAT 99%< NO ACUTE DISTRESS NOTED, CHANNEL PARTNERS SHOWING S PEBBLES. IV RT IJ DIPRIVAN 45MCG/KG/MIN, DOPAMINE 3MCG/KG/MIN. TONY SOF6T WRIST RESTRAINT CHECKED AND RELEASED, NO INJURY OR REDNESS NOTED, OGT FEEDING STARTED, RATE IS 40ML. FC PATENT, URINE DRAINING. H0B ELEVATED. TURN AND REPOSITION Q2H. WILL CONTINUE TO CONTINUE TO MONITOR VITALS VITALS.
[2019-09-05] MEDS: ZOSYN IVPB 3.375 G in IV D5W 50ml IV SCH ×4 (05:30→23:25)
[2019-09-05 05:44] LABS: BASOPHILS % (AUTO) 0.3 % (0.0-2.0); EOSINOPHILS % (AUTO) 1.7 % (0.0-6.0); HEMATOCRIT 26 % (39-51); LYMPHOCYTES # (AUTO) 1.4 /CMM (0.8-4.8); LYMPHOCYTES % (AUTO) 15.2 % (20.0-44.0); MEAN CORPUSCULAR HGB CONC 31 g/dl (31.0-36.0); MEAN CORPUSCULAR VOLUME 83 fL (80-96); MONOCYTES # (AUTO) 0.6 /CMM (0.1-1.30); MONOCYTES % (AUTO) 6.3 % (2.0-12.0); NEUTROPHILS # (AUTO) 6.9 /CMM (1.8-8.9); NEUTROPHILS % (AUTO) 76.5 % (43.0-81.0); PLATELET COUNT (AUTO) 349 /CMM (150-450); RED BLOOD CELL COUNT(AUTO) 3.07 MIL/uL (4.5-6.0)
[2019-09-05 06:06] LABS: CALCIUM, SERUM 7.8 mg/dL (8.5-10.1); CREATININE 1.1 mg/dL (0.6-1.3); POTASSIUM 3.9 mmol/L (3.5-5.1)
[2019-09-05 06:32] LABS: MAGNESIUM 2.1 mg/dL (1.8-2.4)
--- NOTE | 2019-09-05 06:52 | NUR ---
silviculture professor. stool send for ob
--- NOTE | 2019-09-05 07:05 | NUR ---
RN NOTES RECEIVED PT ON BED, ORALLY INTUBATED. SEDATED WITH DIPRIVAN 20MCG/KG/MIN, TOLERATING CURRENT VENT SETTING WELL , NO DISTRESS NOTED, ETT #8,LIP 23,AC 14,TV 550,FIO2 40%.SAT 98%. NO ACUTE DISTRESS NOTED. ON TELE SB HR IN 50'S, .TONY SOFT WRIST RESTRAINT CHECKED AND RELEASED. NO INJURY OR REDNESS NOTED. RT IJ TLC SITE CLEAN, DRY AND INTACT, DOPAMINE AT 6 MCG /KG/MIN , OGT INTACT WITH JEVITY RUNNING AT 40CC/HR , HOB ELEVATED, WILL CONTINUE TO MONITOR.
[2019-09-05] MEDS: PANTOPRAZOLE 40 MG TABLET.DR PO SCH (08:21)
[2019-09-05 09:01] LABS: ABG BASE EXCESS 3.1 mmol/L; ABG OXYGEN SATURATION 94.4 % (92.0-98.5); ABG PCO2 38.1 mmHg (35.0-45.0); ABG PH 7.468 (7.350-7.450); ABG PO2 73.1 mmHg (75.0-100.0); AaDO2 168.3 mmHg; COHb 0.4 % (0.5-1.5); MetHb 0.6 % (0.0-1.5); O2Hb 93.5 % (94.0-97.0); PEEP,BG 0 cm H2O; SITE, ABG Right Radial; VT, ABG 550 mL
--- NOTE | 2019-09-05 12:00 | NUR ---
RN NOTES ET TUBE SUCTIONING DONE, VSS STABLE, CONTINUE TO MONITOR .
[2019-09-05] MEDS: ACETAMINOPHEN 325 MG TABLET PO PRN (14:08)
[2019-09-05] MEDS: DOPamine 400 MG in IV D5W 250 ML IV PRN (17:08)
--- NOTE | 2019-09-05 17:43 | NUR ---
RT NOTE: PATIENT RECEIVED ORALLY INTUBATED WITH 8.0 ETT SECURED AT 23 CM MID LIP LINE ON PB 840 VENT. ALARMS VERIFIED AND AUDIBLE. VENT PLUGGED INTO RED OUTLET. AMBU BAG AT [facility].
--- NOTE | 2019-09-05 18:23 | NUR ---
RN NOTES PT REMAINS INTUBATED SEDATED, VSS STABLE, ON DOPAMINE AT 3MCG/KG/MIN AND DIPRIVAN AT 40 MCG/KG/MIN JUAN C BUSH TO GRAVITY, SR UP x3, NO SIGNIFICANT CHANGES NOTED ON THIS SHIFT, WILL ENDOSE TO FIBERGLASS GRINDER NURSE FOR CONTINUITY OF CARE.
--- NOTE | 2019-09-05 22:12 | NUR ---
RECEIVED PT INTUBATED WITH 8.0 ETT SECURED AT 23CM AT THE LIP. NO DISTRESS. PT TOLERATING VENT SETTINGS. VENT ALARMS SET AND AUDIBLE. AMBU BAG AT BEDSIDE. VENT PLUGGED INTO RED OUTLET. CONTINUE [facility] VENT SUPPORT. Addendum: 09/05/19 at 2213 by NADIRA YATES RT Amended: Links added.
[2019-09-05] MEDS: JEVITY 1.2 CAL 1,000 ML BOTTLE GT SCH (23:25)
[2019-09-05 23:34] LABS: OCCULT BLOOD STOOL NEGATIVE (NEGATIVE)
--- NOTE | 2019-09-05 23:36 | NUR ---
ORE MIXER NS @ TKO HANGING NO ORDER IN CHART; OBTAINED ORDER AT THIS TIME.
[2019-09-05] MEDS: IV NS 0.9% 250 ML IV PRN (23:55)
[2019-09-06] VITALS (93 sets, daily range): BP systolic 72–160; BP diastolic 44–95
[2019-09-06] MEDS: PROPOFOL 100 ML IV PRN ×8 (02:51→22:10)
[2019-09-06 04:35] LABS: BASOPHILS % (AUTO) 0.5 % (0.0-2.0); HEMATOCRIT 26 % (39-51); HEMOGLOBIN 8.3 g/dL (13.5-17.5); LYMPHOCYTES # (AUTO) 1.1 /CMM (0.8-4.8); LYMPHOCYTES % (AUTO) 11.9 % (20.0-44.0); MEAN CORPUSCULAR HGB CONC 32 g/dl (31.0-36.0); MEAN CORPUSCULAR VOLUME 84 fL (80-96); MONOCYTES # (AUTO) 0.7 /CMM (0.1-1.30); MONOCYTES % (AUTO) 7.3 % (2.0-12.0); NEUTROPHILS # (AUTO) 7.2 /CMM (1.8-8.9); NEUTROPHILS % (AUTO) 78.3 % (43.0-81.0); PLATELET COUNT (AUTO) 342 /CMM (150-450); RED BLOOD CELL COUNT(AUTO) 3.13 MIL/uL (4.5-6.0); WHITE BLOOD COUNT (AUTO) 9.2 K/uL (4.3-11.0)
[2019-09-06 04:41] LABS: CALCIUM, SERUM 7.8 mg/dL (8.5-10.1); CREATININE 1.2 mg/dL (0.6-1.3); POTASSIUM 3.7 mmol/L (3.5-5.1)
--- NOTE | 2019-09-06 05:00 | NUR ---
CORPORATE COUNSELOR DOPAMINE TITRATED OFF AT THIS TIME; CONTINUE TO MONITOR.
[2019-09-06] MEDS: ZOSYN IVPB 3.375 G in IV D5W 50ml IV SCH ×3 (05:30→17:30)
--- NOTE | 2019-09-06 06:38 | NUR ---
CUT OFF SAWYER PT REMAINED ON DIPRIVAN AT 50 MCG/KG/MIN WELL WITH BSWR IN PLACE; DESPITE THE PROPOFOL BEING AT 50 MCG/KG/MIN PT STILL HAS EPISODES OF WAKING UP AND MOVING HANDS UP; RESTRAINTS REMAIN IN PLACE FOR SAFETY.
--- NOTE | 2019-09-06 07:00 | NUR ---
RN NOTES RECEIVED PT ON BED, ORALLY INTUBATED. SEDATED WITH DIPRIVAN AT 50 MCG/KG/MIN, TOLERATING CURRENT VENT SETTING WELL , NO DISTRESS NOTED, ETT #8,LIP 23,AC 14,TV 550,FIO2 40%. O2 SAT WNL. NO ACUTE DISTRESS NOTED. ON TELE SB HR IN 50'S, .TONY SOFT WRIST RESTRAINT CHECKED AND RELEASED. NO INJURY OR REDNESS NOTED. RT IJ TLC SITE CLEAN, DRY AND INTACT, OGT INTACT WITH JEVITY RUNNING AT 50CC/HR , HOB ELEVATED,SR UP x3, CALL LIGHT WITHIN EASY REACH, BED LOCKED AND IN LOWEST POSITION, CONTINUE TO MONITOR.
[2019-09-06] MEDS: PANTOPRAZOLE 40 MG TABLET.DR PO SCH (08:22)
[2019-09-06 08:45] LABS: ABG OXYGEN SATURATION 96.2 % (92.0-98.5); ABG PCO2 40.2 mmHg (35.0-45.0); ABG PH 7.435 (7.350-7.450); COHb 0.1 % (0.5-1.5); O2Hb 95.1 % (94.0-97.0); PEEP,BG 0 cm H2O; SITE, ABG Right Radial; VT, ABG 550 mL
[2019-09-06] MEDS ORDERED: BUMETANIDE INJ 8 MG in IV NS 0.9% 48 ML IV ONE (09:00)
--- NOTE | 2019-09-06 12:00 | NUR ---
RN NOTES ET TUBE SUCTIONING DONE, TOLERATING TF WELL, NO DISTRESS NOTED, CONTINUE TO MONITOR
[2019-09-06] MEDS: DOPamine 400 MG in IV D5W 250 ML IV PRN (15:13)
--- NOTE | 2019-09-06 17:00 | NUR ---
RN NOTES CALL RECEIVED FROM PT'S SISTER, MASOOD GRIFFIN ([phone]). SHE IS WILLING TO TALK TO PRIMARY TO MAKE DECISION REGARDING PLAN OFF CARE.
--- NOTE | 2019-09-06 18:00 | NUR ---
RN NOTES PT REMAINS INTUBATED AND SEDATED, ON DOPAMINE AND DIPRIVAN AT THIS TIME , TOLERATING TF WELL, SR UP X3, CALL LIGHT WITHIN EASY REACH, WILL ENDOSE TO [facility] CLERK NURSE FOR CONTINUITY OF CARE.
--- NOTE | 2019-09-06 19:30 | NUR ---
RN OPENING NOTES RECEIVED PATIENT ON BED, ORALLY INTUBATED. SEDATED WITH PROPOFOL 70ML/HR. TOLERATING CURRENT VENT SETTING WELL , NO DISTRESS NOTED, ETT #8, LIP 23, AC 14,TV 550, FIO2 40%. SAT 98%. NO ACUTE DISTRESS NOTED. ON TELE SB HR IN 50'S, .TONY SOFT WRIST RESTRAINT CHECKED AND RELEASED. NO INJURY OR REDNESS NOTED. RT IJ TLC SITE CLEAN, DRY AND INTACT, DOPAMINE AT 2 MCG /KG/MIN , OGT INTACT WITH JEVITY RUNNING AT 55CC/HR , TOLERATING WELL. HOB ELEVATED, BED IN LOW LOCKED POSITION. WILL CONTINUE TO MONITOR.
[2019-09-06] MEDS: JEVITY 1.2 CAL 1,000 ML BOTTLE GT SCH (21:44)
[2019-09-07] VITALS (80 sets, daily range): BP systolic 75–136; BP diastolic 41–76
[2019-09-07] MEDS: ZOSYN IVPB 3.375 G in IV D5W 50ml IV SCH ×5 (00:11→23:57)
[2019-09-07] MEDS: PROPOFOL 100 ML IV PRN ×9 (01:05→23:57)
[2019-09-07 04:36] LABS: BASOPHILS % (AUTO) 0.5 % (0.0-2.0); EOSINOPHILS % (AUTO) 1.9 % (0.0-6.0); HEMATOCRIT 28 % (39-51); LYMPHOCYTES # (AUTO) 1.1 /CMM (0.8-4.8); LYMPHOCYTES % (AUTO) 12.8 % (20.0-44.0); MEAN CORPUSCULAR HGB CONC 32 g/dl (31.0-36.0); MEAN CORPUSCULAR VOLUME 83 fL (80-96); MONOCYTES # (AUTO) 0.6 /CMM (0.1-1.30); MONOCYTES % (AUTO) 6.4 % (2.0-12.0); NEUTROPHILS % (AUTO) 78.4 % (43.0-81.0); PLATELET COUNT (AUTO) 373 /CMM (150-450); RED BLOOD CELL COUNT(AUTO) 3.39 MIL/uL (4.5-6.0); WHITE BLOOD COUNT (AUTO) 8.9 K/uL (4.3-11.0)
[2019-09-07] MEDS: IV NS 0.9% 250 ML IV PRN (06:15)
--- NOTE | 2019-09-07 07:00 | NUR ---
RN CLOSING NOTES PATIENT REMAINS IN BED, ORALLY INTUBATED. SEDATED WITH PROPOFOL 70ML/HR. TOLERATING CURRENT VENT SETTING WELL , NO DISTRESS NOTED, ETT #8, LIP 23, AC 14,TV 550, FIO2 40%. SAT 98%. NO ACUTE DISTRESS NOTED. ON TELE SB HR IN 50'S, .TNOY SOFT WRIST RESTRAINT CHECKED AND RELEASED. NO INJURY OR REDNESS NOTED. RT IJ TLC SITE CLEAN, DRY AND INTACT, DOPAMINE AT 2 MCG /KG/MIN , OGT INTACT WITH JEVITY RUNNING AT 55CC/HR , TOLERATING WELL. HOB ELEVATED, BED IN LOW LOCKED POSITION. WILL ENDORSE THE PATIENT TO AM RN FOR MICHELA.
--- NOTE | 2019-09-07 07:00 | NUR ---
RN NOTES RECEIVED PT ON BED, ORALLY INTUBATED. SEDATED WITH DIPRIVAN AT 70 MCG/KG/MIN, TOLERATING CURRENT VENT SETTING WELL ,ON DOPAMINE AT 2MCG/KG/MIN RUNNING , NO DISTRESS NOTED, ETT #8,LIP 23,AC 14,TV 550,FIO2 40%. O2 SAT WNL. NO ACUTE DISTRESS NOTED. ON TELE SR-SB HR IN 60'S AT THIS TIME .TONY SOFT WRIST RESTRAINT CHECKED AND RELEASED. NO INJURY OR REDNESS NOTED. RT IJ TLC SITE CLEAN, DRY AND INTACT, OGT INTACT WITH JEVITY RUNNING AT 55CC/HR , HOB ELEVATED,SR UP x3, CALL LIGHT WITHIN EASY REACH, BED LOCKED AND IN LOWEST POSITION, CONTINUE TO MONITOR.
--- NOTE | 2019-09-07 07:44 | NUR ---
RT PATIENT REC'D ORALLY INTUBATED ON [facility] VENT WITH ORDERED SETTINGS NABOR WELL. VENT ALARMS CHECKED + AUDIBLE. AIRWAY SUCTIONED, PATENT AND SECURE. PATIENT SEDATED AND IN NO DISTRESS. AMBU BAG AT HOB. Addendum: 09/07/19 at 1730 by CARLIN MERRITT RT Amended: Links added.
[2019-09-07] MEDS: PANTOPRAZOLE 40 MG TABLET.DR PO SCH (08:15)
[2019-09-07 08:27] LABS: ABG BASE EXCESS 6.5 mmol/L; ABG OXYGEN SATURATION 95.3 % (92.0-98.5); ABG PO2 79.5 mmHg (75.0-100.0); AaDO2 157.4 mmHg; COHb 0.5 % (0.5-1.5); MetHb 0.2 % (0.0-1.5); O2Hb 94.6 % (94.0-97.0); SITE, ABG Right Radial
--- NOTE | 2019-09-07 12:00 | NUR ---
RN NOTES ET TUBE SUCTIONING DONE. VSS STABLE, CONTINUE TO MONITOR .
[2019-09-07] MEDS: DOPamine 400 MG in IV D5W 250 ML IV PRN (15:39)
[2019-09-07] MEDS: JEVITY 1.2 CAL 1,000 ML BOTTLE GT SCH (15:42)
--- NOTE | 2019-09-07 18:31 | NUR ---
RN NOTES PT REMAINS INTUBATED AND SEDATED , ON DIPRIVAN AND DOPAMINE GTT, TOLERATING TF WELL, SR UP X3, NO DISTRESS NOTED , WILL ENDORSE TO SENIOR AUDIT MANAGER NURSE FOR CONTINUITY OF CARE .
--- NOTE | 2019-09-07 20:02 | NUR ---
agriculture specialist. initial assessment. received the pt rest on the bed, orally intubated, sedated with diprivan 70mcg/kg/min, ett #8,ac 14,lip 23,tv 550,fio2 40%ogt intact, jevity 55ml/h. fc patent. iv lt ij triple lumen. dopamine 4mcg/kg/min, kb soft wrist restraint checked and released. no injury or redness noted,will continue to monitor vitals.
[2019-09-08] VITALS (74 sets, daily range): BP systolic 71–151; BP diastolic 37–97
[2019-09-08] MEDS: PROPOFOL 100 ML IV PRN ×7 (02:51→22:37)
[2019-09-08 04:36] LABS: BASOPHILS # (AUTO) 0.1 /CMM (0.0-0.2); EOSINOPHILS % (AUTO) 2.7 % (0.0-6.0); HEMATOCRIT 30 % (39-51); HEMOGLOBIN 9.3 g/dL (13.5-17.5); LYMPHOCYTES # (AUTO) 1.8 /CMM (0.8-4.8); LYMPHOCYTES % (AUTO) 18.6 % (20.0-44.0); MEAN CORPUSCULAR HGB CONC 31 g/dl (31.0-36.0); MEAN CORPUSCULAR VOLUME 85 fL (80-96); MONOCYTES # (AUTO) 0.5 /CMM (0.1-1.30); MONOCYTES % (AUTO) 5.5 % (2.0-12.0); NEUTROPHILS # (AUTO) 6.8 /CMM (1.8-8.9); NEUTROPHILS % (AUTO) 72.2 % (43.0-81.0); PLATELET COUNT (AUTO) 493 /CMM (150-450); RED BLOOD CELL COUNT(AUTO) 3.53 MIL/uL (4.5-6.0); WHITE BLOOD COUNT (AUTO) 9.5 K/uL (4.3-11.0)
[2019-09-08 04:49] LABS: CALCIUM, SERUM 7.5 mg/dL (8.5-10.1); CREATININE 1.1 mg/dL (0.6-1.3); POTASSIUM 3.2 mmol/L (3.5-5.1)
[2019-09-08] MEDS: ACETAMINOPHEN 325 MG TABLET PO PRN (05:25)
[2019-09-08] MEDS: ZOSYN IVPB 3.375 G in IV D5W 50ml IV SCH ×3 (05:25→18:16)
[2019-09-08] MEDS: IV NS 0.9% 250 ML IV PRN (05:26)
--- NOTE | 2019-09-08 05:29 | NUR ---
HATCHERY LABORER. DURING SHIFT NO COMPLICATION NOTED. PT REMAINING SAME VENT SETTING AND GT FEEDING TOLERATED WELL. TONY SOFT WRIST RESTRAINT CHECKED AND RELEASED. NO INJURY OR REDNESS NOTED, FC PATENT URINE DRAINING, HOB ELEVATED. TURN NAD REPOSITION Q2H. TEMPERATURE 100. WILL CONTINUE TO MONITOR VITALS.
[2019-09-08] MEDS: DOPamine 400 MG in IV D5W 250 ML IV PRN ×3 (05:40→14:15)
[2019-09-08] MEDS: POTASSIUM CHLORIDE 20 MEQ POWDER PACKET GT SCH ×3 (07:01→09:25)
--- NOTE | 2019-09-08 07:15 | NUR ---
MACHINED PARTS METAL SPRAYER NOTES RECEIVED PATIENT SEDATED, RESPONSIVE TO PAIN STIMULI , NOT IN ACUTE DISTRESS , RESPIRATIONS EVEN AND UNLABORED , SPO2 OF 100% VIA MECHANICAL VENT SETTINGS ORDERED , ETT 03/[address] , SR 75 ON BEDSIDE MONITOR , OGT PATENT AND INTACT IN PLACE VIA CHEST XRAY AND AUSCULTATION WITH JEVITY @ 55ML/HR WITH NO RESIDUALS NOTED , FC DRAINING VIA GRAVITY WITH GREENISH YELLOW OUTPUT , L IJ WITH DIPRIVAN @ 60MCG/KG/MIN , DOPAMINE @ 6MCG/KG/MIN , NS @ TKO INFUSING WELL , JUDI AND LFA # 20 PATENT AND INTACT, ALL NEEDS ATTENDED , WILL CONTINUE TO MONITOR ,
[2019-09-08] MEDS: PANTOPRAZOLE 40 MG VIAL IV SCH (09:25)
--- NOTE | 2019-09-08 10:00 | NUR ---
PIGMENT AND LACQUER MIXER NOTES SEEN AND EVALUATED BY NATA BUSINESS PROFESSOR , DISCUSSED [facility]ATEST LABS , ON [facility] VENT SETTINGS ORDERED SPO2 OF 100% , TRACH PLACEMENT FOR TOMORROW BY DR SAHNI , STILL ON DOPAMINE @6MCG/KG/MIN , DIPRIVAN @ 60MCG/KG/MIN , CVP OF -1 -0 , TOLERATING NGT FEEDING WITH NO RESIDUALS , AFEBRILE , K REPLACED , AWARE
[2019-09-08] MEDS ORDERED: POTASSIUM CHLORIDE 20 MEQ POWDER PACKET GT ONE (10:30)
--- NOTE | 2019-09-08 12:43 | NUR ---
RT PT RECEIVED ORALLY INTUBATED WITH 8.0 ETT, 23 CM AT THE LIP. VENT PLUGGED INTO RED OUTLET. VENT ALARMS ON AND WORKING PROPERLY. ETT SECURED VIA ANCHOR FAST. SUCTIONED AND MONITORED PRN. NO SOB NOTED AT THIS TIME. WILL CONTINUE TO MONITOR FOR ANY CHANGES. Addendum: 09/08/19 at 1839 by CELIA YANEZ RT Amended: Links added.
--- NOTE | 2019-09-08 18:58 | NUR ---
REINFORCEMENT MAKER NOTES PATIENT STABLE , SEDATED , RESPONSIVE TO PAIN STIMULI , NOT IN ACUTE DISTRESS , RESPIRATIONS EVEN AND UNLABORED , SPO2 OF 100% VIA MECHANICAL VENT SETTINGS ORDERED , ETT 03/[address] , SR 79 ON BEDSIDE MONITOR , OGT PATENT AND INTACT WITH JEVITY @ 55ML/HR WITH NO RESIDUALS NOTED , FC DRAINING VIA GRAVITY WITH GREENISH YELLOW OUTPUT , L IJ WITH DIPRIVAN @ 60MCG/KG/MIN , DOPAMINE @ 6MCG/KG/MIN , NS @ TKO INFUSING WELL , JUDI AND LFA # 20 PATENT AND INTACT, ALL NEEDS ATTENDED , REPORT GIVEN TO RAFA FOR CONTINUITY OF CARE
--- NOTE | 2019-09-08 19:19 | NUR ---
PROJECT MANAGEMENT CONSULTANT NOTES DOPAMINE TITRATED TO 4MCG/KG/MIN , BP OF 111/64
--- NOTE | 2019-09-08 19:30 | NUR ---
ICU/RN RECEIVED PATIENT INTUBATED ON VENTILATOR AND SEDATED , RESPONSIVE TO PAIN STIMULI ,NO DISTRESS NOTED AND NO SIGNS OF SOB. RESPIRATIONS EVEN AND UNLABORED , SPO2 OF 100% VIA MECHANICAL VENT SETTINGS ORDERED , ETT 03/[address] , SR 73 ON BEDSIDE MONITOR , OGT PATENT AND INTACT WITH JEVITY @ 55ML/HR. FC IN PLACE WITH NO SIGN OF LEAKAGE DRAINING VIA GRAVITY WITH GREENISH YELLOW OUTPUT , L IJ WITH DIPRIVAN @ 60MCG/KG/MIN , DOPAMINE @ 4MCG/KG/MIN , NS @ TKO INFUSING WELL , JUDI AND LFA # 20 PATENT AND INTACT. ALL SAFETY PRECAUTIONS APPLIED. VENT PLUGGED INTO RED OUTLET WILL CONTINUE TO MONITOR PATIENT THROUGHOUT SHIFT
--- NOTE | 2019-09-08 21:46 | NUR ---
RT NOTE PT RECEIVED INTUBATED WITH ET TUBE SZ 8 @ 23 CM RIGHT LIP LINE. CUFF CHECKED VIA BARN HAND. ET TUBE SECURED VIA ANCHOR FAST. AMBU BAG @ BEDSIDE. SX DONE, MODERATE SECRETIONS NOTED. ALARMS ON AND AUDIBLE. NO DISTRESS NOTED AT THIS TIME. WILL MONITOR T/O SHIFT. Addendum: 09/08/19 at 2148 by SHELLY WHITE RT Amended: Links added.
[2019-09-09] VITALS (81 sets, daily range): BP systolic 89–148; BP diastolic 43–101
[2019-09-09] MEDS: ZOSYN IVPB 3.375 G in IV D5W 50ml IV SCH ×4 (00:20→17:57)
[2019-09-09] MEDS: PROPOFOL 100 ML IV PRN ×5 (01:59→17:58)
[2019-09-09 04:42] LABS: BASOPHILS % (AUTO) 0.5 % (0.0-2.0); EOSINOPHILS % (AUTO) 4.6 % (0.0-6.0); HEMATOCRIT 27 % (39-51); HEMOGLOBIN 8.6 g/dL (13.5-17.5); LYMPHOCYTES # (AUTO) 1.2 /CMM (0.8-4.8); LYMPHOCYTES % (AUTO) 14.1 % (20.0-44.0); MEAN CORPUSCULAR HGB CONC 32 g/dl (31.0-36.0); MEAN CORPUSCULAR VOLUME 84 fL (80-96); MONOCYTES # (AUTO) 0.6 /CMM (0.1-1.30); MONOCYTES % (AUTO) 7.3 % (2.0-12.0); NEUTROPHILS # (AUTO) 6.5 /CMM (1.8-8.9); NEUTROPHILS % (AUTO) 73.5 % (43.0-81.0); PLATELET COUNT (AUTO) 546 /CMM (150-450); RED BLOOD CELL COUNT(AUTO) 3.25 MIL/uL (4.5-6.0); WHITE BLOOD COUNT (AUTO) 8.8 K/uL (4.3-11.0)
[2019-09-09 04:52] LABS: CALCIUM, SERUM 7.3 mg/dL (8.5-10.1); CREATININE 1.2 mg/dL (0.6-1.3); POTASSIUM 3.7 mmol/L (3.5-5.1)
[2019-09-09] MEDS: DOPamine 400 MG in IV D5W 250 ML IV PRN (06:39)
--- NOTE | 2019-09-09 07:22 | NUR ---
ICU/RN CLOSING NOTE PATIENT INTUBATED ON VENTILATOR AND SEDATED , RESPONSIVE TO PAIN STIMULI ,NO DISTRESS NOTED AND NO SIGNS OF SOB. RESPIRATIONS EVEN AND UNLABORED , SPO2 OF 99% VIA MECHANICAL VENT SETTINGS ORDERED , ETT 03/[address] , SR 73 ON BEDSIDE MONITOR , OGT PATENT AND INTACT WITH PATIENT NPO TO FOLLOW TRACHEOSTOMY PROCEDURE. FC IN PLACE WITH NO SIGN OF LEAKAGE DRAINING VIA GRAVITY WITH GREENISH YELLOW OUTPUT , L IJ WITH DIPRIVAN @ 60MCG/KG/MIN , DOPAMINE @ 6MCG/KG/MIN , NS @ TKO INFUSING WELL , JUDI AND LFA # 20 PATENT AND INTACT. ALL SAFETY PRECAUTIONS APPLIED. VENT PLUGGED INTO RED OUTLET ENDORSED PATIENT TO MORNING SHIFT NURSE FOR MICHELA.
[2019-09-09] MEDS: PANTOPRAZOLE 40 MG VIAL IV SCH (07:29)
--- NOTE | 2019-09-09 07:30 | NUR ---
PATIENT RECEIVED-ORALLY INTUBATED TO VENT. SEDATED ON DIPRIVAN DRIP AT 60 MCG/KG/MIN. NO RESTRAINTS NOTED. OPENS EYES TO TACTILE. WITHDRAWS/GRIMACES TO PAIN. + GAG/COUGH REFLEX. DOPAMINE DRIP TO KEEP SBP >90. SCHEDULED FOR TRACHEOSTOMY TUBE PLACEMENT TODAY AT 0900. PROCEDURE CONSENT SIGNED BY 2 MD'S. NO FAMILY AVAILABLE. KEPT ON NPO.
[2019-09-09] MEDS ORDERED: LIDOCAINE HCL/PF 1% 30 ML SDV ONE (09:15)
[2019-09-09] MEDS ORDERED: ANESTHESIA TRAY IN PYXIS 1 EA TRAY MC ONE (09:15)
--- NOTE | 2019-09-09 09:25 | NUR ---
TO OR FOR TRACHEOSTOMY TUBE PLACEMENT BY DR. FRANKS.
[2019-09-09] MEDS ORDERED: CELLULOSE,OXIDIZED 1 PKT EACH MC ONE (09:58)
--- NOTE | 2019-09-09 10:25 | NUR ---
PATIENT BACK FROM OR. S/P TRACHEOSTOMY TUBE PLACEMENT. VALENCIA#8. NO SIGNS OF ACTIVE BLEEDING NOTED ON PROCEDURE SITE. SUTURES INPLACED. REMAINS ON DIPRIVAN DRIP AT 50 MCK/KG/MIN. WILL TITRATE DOWN ABLE. DOPAMINE DRIP AT 5 MCG/KG/MIN. PLACED BACK TO VENT WITH PREVIOUS SETTINGS BY RT.
--- NOTE | 2019-09-09 12:00 | NUR ---
ONGOING TITRATION OF DOPAMINE DRIP TO KEEP SBP >90. AFEBRILE AT THIS TIME. STABLE ON CURRENT VENT SETTINGS.
[2019-09-09] MEDS: LORAZEPAM INJ 2 MG/ML VIAL IV PRN ×2 (19:59→22:59)
--- NOTE | 2019-09-09 19:59 | NUR ---
STEELSCOPE OPERATOR ATIVAN 1 MG IVP GIVEN FOR AGITATION DURING DIPRIVAN WEANING. CONTINUE TO MONITOR.
--- NOTE | 2019-09-09 20:00 | NUR ---
BEST SECOND JOBS DOPAMINE TITRATED OFF BP 139/89; CONTINUE TO MONITOR.
--- NOTE | 2019-09-09 22:59 | NUR ---
RIBBON LAP MACHINE TENDER ATIVAN 1 MG IVP GIVEN FOR AGITATION DURING DIPRIVAN WEANING. CONTINUE TO MONITOR.
--- NOTE | 2019-09-09 23:40 | NUR ---
PT RCVD MARIBETH'D ON MECHANICAL VENT WITH CHARTED SETTINGS. SX DONE. PT TRACH IS PATENT AND SECURE. VENT ALARMS ARE ON AND AUDIBLE. VENT PLUGGED INTO RED OUTLET. AMBU BAG AT BEDSIDE. NO DISTRESS NOTED AT THIS TIME. Addendum: 09/09/19 at 2343 by CHANDU FELIPE RT Amended: Links added.
[2019-09-10] VITALS (22 sets, daily range): BP systolic 89–164; BP diastolic 54–93
[2019-09-10] MEDS: IV NS 0.9% 250 ML IV PRN
[2019-09-10] MEDS: LORAZEPAM INJ 2 MG/ML VIAL IV PRN ×3 (00:59→23:04)
--- NOTE | 2019-09-10 01:00 | NUR ---
POWERHOUSE LABORER DIPRIVAN TITRATED OFF; ATIVAN PRN WEANING ADMINISTERED NEEDED. CONTINUE TO MONITOR.
[2019-09-10 04:22] LABS: BASOPHILS # (AUTO) 0.1 /CMM (0.0-0.2); BASOPHILS % (AUTO) 0.8 % (0.0-2.0); HEMATOCRIT 27 % (39-51); HEMOGLOBIN 8.5 g/dL (13.5-17.5); LYMPHOCYTES # (AUTO) 0.8 /CMM (0.8-4.8); LYMPHOCYTES % (AUTO) 8.4 % (20.0-44.0); MEAN CORPUSCULAR HGB CONC 31 g/dl (31.0-36.0); MEAN CORPUSCULAR VOLUME 85 fL (80-96); MONOCYTES # (AUTO) 0.6 /CMM (0.1-1.30); MONOCYTES % (AUTO) 6.4 % (2.0-12.0); NEUTROPHILS # (AUTO) 7.8 /CMM (1.8-8.9); NEUTROPHILS % (AUTO) 82.4 % (43.0-81.0); PLATELET COUNT (AUTO) 545 /CMM (150-450); WHITE BLOOD COUNT (AUTO) 9.5 K/uL (4.3-11.0)
[2019-09-10 04:42] LABS: BILIRUBIN,TOTAL 0.6 mg/dL (0.2-1.0); CALCIUM, SERUM 7.7 mg/dL (8.5-10.1); CREATININE 1.1 mg/dL (0.6-1.3); MAGNESIUM 2.2 mg/dL (1.8-2.4); PHOSPHORUS 3.2 mg/dL (2.5-4.9); POTASSIUM 3.7 mmol/L (3.5-5.1)
[2019-09-10] MEDS: ZOSYN IVPB 3.375 G in IV D5W 50ml IV SCH ×4 (05:00→12:38)
--- NOTE | 2019-09-10 05:00 | NUR ---
GUNNER MATE ATIVAN 1 MG IVP GIVEN FOR AGITATION DURING DIPRIVAN WEANING. CONTINUE TO MONITOR.
[2019-09-10 05:01] LABS: ALBUMIN 1.4 g/dL (3.4-5.0)
[2019-09-10] MEDS: PANTOPRAZOLE 40 MG VIAL IV SCH (09:21)
--- NOTE | 2019-09-10 09:52 | NUR ---
RN NOTE 0815: Received patient awake, opens eyes but does not follow commands. With trache to vent, tolerated settings well. VSS. S/E by Erica CARRASQUILLO, per WIRER HELPER he called GI for GT placement. Awaiting GI for schedule. 0900: S/E by Dr. Pete, per , may transfer to [facility], CN aware. 0950: No any significant changes noted at this time. VSS, awaiting [facility] bed and GI consult.
[2019-09-10] MEDS: ALBUMIN 25% 25 GM in PREMIX 1 EA IV SCH ×3 (10:48→21:38)
--- NOTE | 2019-09-10 11:16 | NUR ---
RN NOTE Transferred patient via ACLS protocol. No any significant changes noted. VSS. Report given to Mane ABRAHAM for MICHELA. Endorsed for GI consult awaiting.
--- NOTE | 2019-09-10 11:30 | NUR ---
TELE/RN NOTES RECEIVED PATIENT FROM ICU ACCOMPANIED BY LEIGH CHURCH. PATIENT IS ABLE TO RESPOND TO TACTILE STIMULI. NO FACIAL GRIMACING OR ACUTE DISTRESS AT THIS TIME. RESPIRATION EVEN AND UNLABORED. SKIN IS DRY WARM TO TOUCH. PATIENT ABLE TO TOLERATE CURRENT VENT SETTINGS. ALL NEEDS ANTICIPATED. CALL LIGHT WITHIN REACHED. BED LOCKED AND IN LOWEST POSITION. SAFETY MAINTAINED. WILL CONTINUE TO MONITOR CLOSELY.
--- NOTE | 2019-09-10 17:24 | NUR ---
RT NOTE RECEIVED PATIENT ON MECHANICAL VENT WITH ORDERED SETTINGS. ALARMS ON AND AUDIBLE WITH VENT PLUGGED IN TO RED OUTLET. AMBU BAG AND BACK UP TRACH BY THE BEDSIDE. TRACH TUBE IN PLACE, PATENT, AND SECURED WITH TRACH TIE. NO DISTRESS AT THIS TIME.
--- NOTE | 2019-09-10 19:12 | NUR ---
TELE/RN CLOSING NOTES PATIENT CONTINUES TO REMAIN IN STABLE CONDITION THROUGHOUT THE SHIFT. PROVIDED COMFORT AND SAFETY. PATIENT ABLE TO TOLERATE MEDS WELL. NO ADVERSE REACTIONS AT THIS TIME. ALL NEEDS ANTICIPATED. CALL LIGHT WITHIN REACHED. BED LOCKED AND IN LOWEST POSITION. SAFETY MAINTAINED. WILL CONTINUE TO MONITOR CLOSELY. ENDORSED TO PM NURSE FOR MICHELA.
[2019-09-11] VITALS: BP 136/73
[2019-09-11] MEDS ORDERED: ACETAMINOPHEN 650 MG/SUPP.RECT RC PRN (01:00)
[2019-09-11] MEDS: ALBUMIN 25% 25 GM in PREMIX 1 EA IV SCH (03:58)
[2019-09-11 04:00] VITALS: BP 140/83
--- NOTE | 2019-09-11 06:28 | NUR ---
TELE-TD/ENVIRONMENTAL HEALTH AIDE CALLED PTS SISTER MASOOD MCDOWELL [phone] NO ANSWER. LEFT VOICEMAIL. WAS ATTEMPTING TO OBTAIN CONSENT FOR PEG PLACEMENT AND EGD. WILL ENDORSE TO AM SHIFT.
[2019-09-11 06:52] LABS: BASOPHILS # (AUTO) 0.1 /CMM (0.0-0.2); BASOPHILS % (AUTO) 0.8 % (0.0-2.0); EOSINOPHILS % (AUTO) 1.1 % (0.0-6.0); HEMATOCRIT 23 % (39-51); HEMOGLOBIN 7.5 g/dL (13.5-17.5); LYMPHOCYTES % (AUTO) 12.1 % (20.0-44.0); MEAN CORPUSCULAR HGB CONC 32 g/dl (31.0-36.0); MEAN CORPUSCULAR VOLUME 83 fL (80-96); MONOCYTES # (AUTO) 0.6 /CMM (0.1-1.30); MONOCYTES % (AUTO) 7.6 % (2.0-12.0); NEUTROPHILS # (AUTO) 6.5 /CMM (1.8-8.9); NEUTROPHILS % (AUTO) 78.4 % (43.0-81.0); PLATELET COUNT (AUTO) 600 /CMM (150-450); RED BLOOD CELL COUNT(AUTO) 2.79 MIL/uL (4.5-6.0); WHITE BLOOD COUNT (AUTO) 8.2 K/uL (4.3-11.0)
[2019-09-11 07:06] LABS: CALCIUM, SERUM 8.3 mg/dL (8.5-10.1); POTASSIUM 3.1 mmol/L (3.5-5.1)
[2019-09-11 08:00] VITALS: BP_SYST 138; BP_SYST 160; BP_DIAS 80; BP_DIAS 91
--- NOTE | 2019-09-11 08:30 | NUR ---
ANN/RN NOTES NURSES FROM OR ARRIVED AT THE UNIT TO DO THE PEG PLACEMENT WITH DR. OWEN. PROCEDURE WAS DONE AT BEDSIDE. PATIENT WAS ABLE TO TOLERATE THE PROCEDURE WELL. NO ADVERSE REACTIONS. PER OR NURSE, DR. OWEN ORDERED FOR PATIENT TO CONTINUE PREVIOUS ORDERS AND TO USE THE PEG TUBE TOMORROW. PATIENT CONTINUES IN STABLE CONDITION. WILL CONTINUE TO MONITOR CLOSELY.
[2019-09-11] MEDS: PANTOPRAZOLE 40 MG VIAL IV SCH (08:59)
[2019-09-11] MEDS: POTASSIUM CL. PREMIX PERIPHER. 50 ML IV SCH ×4 (08:59→11:37)
[2019-09-11 12:00] VITALS: BP_SYST 129; BP_SYST 143; BP_DIAS 76; BP_DIAS 81
[2019-09-11 16:00] VITALS: BP_SYST 124; BP_SYST 127; BP_DIAS 70; BP_DIAS 76
--- NOTE | 2019-09-11 18:11 | NUR ---
ANN/RN NOTES URINE WAS COLLECTED AND WAS PLACED IN THE SPECIMEN FRIDGE. PATIENT CONTINUES TO REMAIN IN STABLE CONDITION. WILL CONTINUE TO MONITOR CLOSELY.
--- NOTE | 2019-09-11 18:50 | NUR ---
ANN/RN CLOSING NOTES PATIENT CONTINUES TO REMAIN IN STABLE CONDITION THROUGHOUT THE SHIFT. PROVIDED COMFORT AND SAFETY. PATIENT WAS ABLE TO TOLERATE PROCEDURE WELL. PEG TUBE IN PLACE AND INTACT. PATIENT ABLE TO TOLERATE ATB THERAPY WELL. NO ADVERSE REACTIONS AT THIS TIME. ALL NEEDS ANTICIPATED. KEPT CLEAN AND DRY. CALL LIGHT WITHIN REACHED. BED LOCKED AND IN LOWEST POSITION. SAFETY MAINTAINED. WILL CONTINUE TO MONITOR CLOSELY. ENDORSED TO PM NURSE FOR MICHELA.
[2019-09-11 19:14] LABS: APPEARANCE,URINE CLEAR (CLEAR); BILIRUBIN,URINE NEGATIVE (NEGATIVE); BLOOD, URINE MODERATE Ery/uL (NEGATIVE); KETONES,URINE TRACE (NEGATIVE); LEUKOCYTE ESTERASE ,URINE NEGATIVE (NEGATIVE); NITRITE, URINE NEGATIVE (NEGATIVE); PROTEIN,URINE 100 mg/dl (NEGATIVE); UGLUCOSE NEGATIVE (NEGATIVE); UROBILINOGEN,URINE 0.2 EU/dL (0.2)
[2019-09-11 19:17] LABS: COLOR,URINE DARK YELLOW (YELLOW)
[2019-09-11 19:20] LABS: RBC,URINE 51-80 /HPF (0-2)
[2019-09-11 19:21] LABS: BACTERIA,URINE Moderate /HPF (None Seen); MUCUS,URINE Few /LPF (None Seen); SQUAMOUS EPITHELIAL CELL,UR Few /HPF (None Seen); URIC ACID CRYSTALS,URINE Few /HPF (None Seen)
[2019-09-11 20:00] VITALS: BP 146/48
[2019-09-11] MEDS: LORAZEPAM INJ 2 MG/ML VIAL IV PRN (22:55)
[2019-09-12] VITALS: BP 146/76
[2019-09-12 04:00] VITALS: BP 162/94
--- NOTE | 2019-09-12 06:58 | NUR ---
rn notes in bed resting comfortably with no distress noted. alert but disoriented, non verbal. noted with eye tracking and can folow simple commands. breathing even and unlabored. noted restlessness. ativan given with help. will endorse to next shift for continuity of care.
--- NOTE | 2019-09-12 07:41 | NUR ---
TELE TD RN OPENING NOTE RECEIVED PATIENT IN BED RESTING COMFORTABLY. PATIENT IN NO ACUTE DISTRESS. PATIENT ON VENT, TOLERATING VENT SETTINGS WELL. NO SOB NOTED. PATIENT BREATHING IS EVEN AND UNLABORED. PATIENT ON CARDIAC MONITORING READING SINUS RHYTHM HR 66. PATIENT HOB IS ELEVATED. BED ALARM IS ON. PATIENT OPENS EYES AND IS AROUSAL TO SOUND AND VERBAL RESPONSE. PATIENT BED IS LOCKED AND IN LOWEST POSITION. CALL LIGHT WITHIN REACH. WILL CONTINUE TO MONITOR.
[2019-09-12 08:00] VITALS: BP 155/76
[2019-09-12 08:12] LABS: BASOPHILS % (AUTO) 0.5 % (0.0-2.0); EOSINOPHILS % (AUTO) 0.4 % (0.0-6.0); HEMATOCRIT 24 % (39-51); HEMOGLOBIN 7.8 g/dL (13.5-17.5); LYMPHOCYTES # (AUTO) 1.1 /CMM (0.8-4.8); LYMPHOCYTES % (AUTO) 14.1 % (20.0-44.0); MEAN CORPUSCULAR HGB CONC 32 g/dl (31.0-36.0); MEAN CORPUSCULAR VOLUME 83 fL (80-96); MONOCYTES # (AUTO) 0.6 /CMM (0.1-1.30); MONOCYTES % (AUTO) 7.4 % (2.0-12.0); NEUTROPHILS % (AUTO) 77.6 % (43.0-81.0); PLATELET COUNT (AUTO) 675 /CMM (150-450); RED BLOOD CELL COUNT(AUTO) 2.94 MIL/uL (4.5-6.0); WHITE BLOOD COUNT (AUTO) 7.8 K/uL (4.3-11.0)
[2019-09-12 08:38] LABS: CALCIUM, SERUM 8.4 mg/dL (8.5-10.1); CREATININE 0.9 mg/dL (0.6-1.3); POTASSIUM 3.5 mmol/L (3.5-5.1)
[2019-09-12] MEDS: PANTOPRAZOLE 40 MG VIAL IV SCH (08:39)
--- NOTE | 2019-09-12 09:30 | NUR ---
TELE TD RN NOTE SPOKE WITH LAYA FELIX, OKAY TO START TUBE FEEDINGS TODAY. NO RESIDUAL. GTUBE PATENT AND INTACT BY AUSCULTATION.
[2019-09-12 09:41] LABS: ABG BASE EXCESS -1.4 mmol/L; ABG OXYGEN SATURATION 97.1 % (92.0-98.5); ABG PCO2 34.5 mmHg (35.0-45.0); ABG PH 7.433 (7.350-7.450); ABG PO2 101.1 mmHg (75.0-100.0); AaDO2 144.4 mmHg; COHb 0.4 % (0.5-1.5); MetHb 0.5 % (0.0-1.5); O2Hb 96.2 % (94.0-97.0); PEEP,BG 5 cm H2O; SITE, ABG Right Radial; VT, ABG 550 mL
[2019-09-12 12:00] VITALS: BP 159/75
[2019-09-12] MEDS ORDERED: JEVITY 1.2 CAL 1,000 ML BOTTLE GT PRN (15:00)
--- NOTE | 2019-09-12 15:33 | NUR ---
TELE TD RN NOTE PATIENT BLOOD PRESSURE SYSTOLICALLY HAS BEEN IN THE 150'S. NOTIFIED ANDESRON FELIX NP. PER ELVIRA CARRASQUILLO, IF SBP >160 ORDER FOR CLONIDINE 0.1MG GT Q6HR PRN.
--- NOTE | 2019-09-12 15:59 | NUR ---
MATERIAL REQUISITIONER NOTE GTUBE PATENT AND INTACT, AUSCULTATION FOR PLACEMENT. NO RESIDUAL AT THIS TIME.
[2019-09-12 16:00] VITALS: BP 152/88
[2019-09-12] MEDS: JEVITY 1.2 CAL 1,000 ML BOTTLE GT PRN (16:01)
--- NOTE | 2019-09-12 19:00 | NUR ---
TELE TD RN NOTE PATIENT ON CARDIAC MONITORING READING SINUS RHYTHM HR 71
--- NOTE | 2019-09-12 19:21 | NUR ---
TELE TD RN CLOSING NOTE PATIENT IN BED RESTING COMFORTABLY. PATIENT IN NO ACUTE DISTRESS. NO SOB NOTED. PATIENT BREATHING IS EVEN AN UNLABORED. PATIENT ON GTUBE FEEDINGS RUNNING AT 45ML/HR. ENDORSED TO ESTHETICS INSTRUCTOR ORDERS TO GRADUALLY INCREASE TO 65 ML/HR TOLERATED. NO GTUBE RESIDUAL AT THIS TIME. PATIENT KEPT CLEAN AND DRY THROUGHOUT MY SHIFT. PATIENT IV PATENT AND INTACT. PATIENT TURNED AND REPOSITIONED Q2H. EXTREMITIES OFFLOADED ON PILLOWS. WOUND CARE PROVIDED ORDERED. PATIENT BED ALARM IS ON. SAFETY PRECAUTIONS IN PLACE. PATIENT BED IS LOCKED AND IN LOWEST POSITION. CALL LIGHT WITHIN REACH. ENDORSED CARE TO PM SHIFT FOR MICHELA.
[2019-09-12 20:00] VITALS: BP_SYST 124; BP_SYST 159; BP_DIAS 66; BP_DIAS 76
--- NOTE | 2019-09-12 20:11 | NUR ---
PT RECEIVED TRACHED ON [facility] VENT ON CHARTED SETTINGS. NO SIGNS OF RESP DISTRESS NOTED AT THIS TIME. AIRWAY PATENT AND SECURED. DELIVERY TECHNICIAN DONE. PT SUCTIONED. ALARMS SET AND AUDIBLE. AMBUBAG AT BEDSIDE. VENT CONNECTED TO RED OUTLET. WILL CONT TO MONITOR. PT ALERT AND ORIENTED. Addendum: 09/12/19 at 2012 by KORINA ALLISON RT Amended: Links added.
[2019-09-12] MEDS: LORAZEPAM INJ 2 MG/ML VIAL IV PRN (23:45)
[2019-09-13] VITALS: BP_SYST 124; BP_SYST 153; BP_DIAS 51; BP_DIAS 92
[2019-09-13 04:00] VITALS: BP 155/75
--- NOTE | 2019-09-13 06:45 | NUR ---
rn notes alert but confused, in no apparent distress. breathing even and unlabored. awake, non verbal. able to follow commands. patient started to be agitated trying to pull out tubings. ativan give with help. after an hour patient seen pulling out tubings. got an ordeer for bilateral wrist restraint from dr barr. applied bilateral soft wrist restraints, released every two hours for repositioning, circulation and comfort. kept clean and dry. will endorse to next shift for continuity of care.
[2019-09-13 07:03] LABS: BASOPHILS # (AUTO) 0.1 /CMM (0.0-0.2); BASOPHILS % (AUTO) 0.8 % (0.0-2.0); EOSINOPHILS % (AUTO) 1.3 % (0.0-6.0); HEMATOCRIT 27 % (39-51); HEMOGLOBIN 8.3 g/dL (13.5-17.5); LYMPHOCYTES # (AUTO) 1.2 /CMM (0.8-4.8); LYMPHOCYTES % (AUTO) 17.1 % (20.0-44.0); MEAN CORPUSCULAR HGB CONC 31 g/dl (31.0-36.0); MEAN CORPUSCULAR VOLUME 84 fL (80-96); MONOCYTES # (AUTO) 0.5 /CMM (0.1-1.30); MONOCYTES % (AUTO) 7.3 % (2.0-12.0); NEUTROPHILS # (AUTO) 5.3 /CMM (1.8-8.9); NEUTROPHILS % (AUTO) 73.5 % (43.0-81.0); PLATELET COUNT (AUTO) 738 /CMM (150-450); RED BLOOD CELL COUNT(AUTO) 3.18 MIL/uL (4.5-6.0); WHITE BLOOD COUNT (AUTO) 7.2 K/uL (4.3-11.0)
[2019-09-13 07:25] LABS: ALBUMIN 2.1 g/dL (3.4-5.0); BILIRUBIN,TOTAL 0.4 mg/dL (0.2-1.0); CALCIUM, SERUM 8.4 mg/dL (8.5-10.1); CREATININE 0.8 mg/dL (0.6-1.3); MAGNESIUM 2.1 mg/dL (1.8-2.4); PHOSPHORUS 2.4 mg/dL (2.5-4.9); POTASSIUM 3.5 mmol/L (3.5-5.1); TOTAL PROTEIN, SERUM 6.3 g/dL (6.4-8.2)
--- NOTE | 2019-09-13 07:30 | NUR ---
ANN RN AM NOTE RECEIVED PATIENT IN BED RESTING COMFORTABLY. NON VERBAL, ALERT, CONFUSED.WITH SHILEY 8 TRACH TO MECHANICAL VENT, SETTING ORDERED AC 14 TV 550 FIO2 40 PEEP 5, TOLERATING WELL, RESPIRATION UNLABORED, SR HR 70 s ON MONITOR, NO SIGNS OF PAIN. RT IJ IN PLACE FLUSHES WELL, SITE CLEAR, CDI . GT FEEDING ONGOING JEVITY AT 65 ML/HR, O RESIDUAL. SEE NURSING FLOWSHEET FOR SKIN ISSUES. IRIZARRY CATH IN PLACE DRAINING ADEQUATE AMOUNT OF URINE, TURBID AND LIGHT ORANGE COLOR. PATIENT HOB IS ELEVATED. BED ALARM IS ON. BED IS LOCKED AND IN LOWEST POSITION. CALL LIGHT WITHIN REACH. WITH BILATERAL SOFT WRIST RESTRAINT, RELEASED AND CHECKED FOR CIRCULATION. THEN EVERY 2 HOURS. WILL TURN AND REPOSITION Q 2 HOURS . WILL CONTINUE TO MONITOR.
[2019-09-13 08:00] VITALS: BP 131/88
--- NOTE | 2019-09-13 08:10 | NUR ---
RT Pt received trached on mechanical ventilation with noted settings. Pt was placed on cool aerosol per Dr. Pete orders. Pt is awake and alert, tolerating well. No SOB or respiratory distress noted. RN Hawa notified and aware of change. Addendum: 09/13/19 at 0943 by DELILAH ROSALES RT Amended: Links added.
--- NOTE | 2019-09-13 08:22 | NUR ---
RN NOTES PATIENT OFF VENT. NOW ON COOL AEROSOL. 40% AND 10 L OXYGEN PER .
[2019-09-13] MEDS ORDERED: K PHOS NEUTRAL 250 MG TABLET PO ONE (08:30)
[2019-09-13] MEDS: PROSOURCE / PROSTAT (PYXIS) 30 ML UDC GT SCH ×3 (08:49→16:14)
[2019-09-13] MEDS: PANTOPRAZOLE 40 MG VIAL IV SCH (08:49)
[2019-09-13 10:29] LABS: ABG BASE EXCESS 1.6 mmol/L; ABG PCO2 37.3 mmHg (35.0-45.0); ABG PH 7.453 (7.350-7.450); ABG PO2 68.5 mmHg (75.0-100.0); AaDO2 173.8 mmHg; COHb 0.4 % (0.5-1.5); MetHb 0.9 % (0.0-1.5); O2Hb 91.8 % (94.0-97.0); SITE, ABG Right Radial; VENT MODE, BG COOL AEROSOL 40%
[2019-09-13 12:00] VITALS: BP_SYST 152; BP_DIAS 83; BP_DIAS 93
[2019-09-13 16:00] VITALS: BP_SYST 151; BP_SYST 171; BP_DIAS 100; BP_DIAS 90
[2019-09-13] MEDS ORDERED: NEUTRA PHOS 1 POWD.PACKET GT ONE (16:00)
[2019-09-13] MEDS: JEVITY 1.2 CAL 1,000 ML BOTTLE GT PRN (16:14)
--- NOTE | 2019-09-13 19:28 | NUR ---
ANN RN NOTES PATIENT RESTING COMFORTABLY. NOT IN ANY DISTRESS. PM CARE AND WOUND TREATMENT DONE. KEPT CLEAN AND DRY. CALL LIGHT PLACED WITHIN REACH. ALL NEEDS MET. NO OTHER SIGNIFICANT CHANGE IN CONDITION. WILL ENDORSE TO NEXT SHIFT FOR MICHELA. IRIZARRY CATH OUT PUT 700ML.
--- NOTE | 2019-09-13 19:30 | NUR ---
TELE TD RN CLOSING NOTE PATIENT IN BED RESTING COMFORTABLY IN BED, WITH TRACH IN PLACED, ON COOL AEROSOL, TOLERATED WELL, OFF FROM VENT THIS MORNING, BREATHING EVEN AND UNLABORED, NO SOB/ NO ACUTE DISTRESS, GT INN PLACED, GTF JEVITY INFUSING ORDERED AND PATIENT TOLERATED WELL, PATIENT IV ACCESS PATENT AND INTACT, PATIENT BED ALARM IS ON. SAFETY PRECAUTIONS IN PLACE. PATIENT BED IS LOCKED AND IN LOWEST POSITION, BILATERAL SIFT RESTRAIN IN PLACED, CIRCULATION CHECK DONE, NO CIRCULATION COMPROMISED, NO BNORMALITY NOTED AT SITE, CALL LIGHT WITHIN REACH, WILL CONTINUE TO MONITOR CLOSELY. Addendum: 09/14/19 at 0517 by HATTIE ORELLANA RN TD OPENING NOTES,
[2019-09-13 20:00] VITALS: BP 149/84
[2019-09-14] VITALS: BP 159/81
[2019-09-14 04:00] VITALS: BP 181/80
[2019-09-14] MEDS: CLONIDINE HCL 0.1 MG TABLET GT PRN (04:59)
[2019-09-14 06:36] LABS: BASOPHILS # (AUTO) 0.1 /CMM (0.0-0.2); BASOPHILS % (AUTO) 0.8 % (0.0-2.0); EOSINOPHILS % (AUTO) 1.4 % (0.0-6.0); HEMATOCRIT 30 % (39-51); HEMOGLOBIN 9.2 g/dL (13.5-17.5); LYMPHOCYTES # (AUTO) 1.7 /CMM (0.8-4.8); LYMPHOCYTES % (AUTO) 14.5 % (20.0-44.0); MEAN CORPUSCULAR HGB CONC 31 g/dl (31.0-36.0); MEAN CORPUSCULAR VOLUME 84 fL (80-96); MONOCYTES # (AUTO) 0.7 /CMM (0.1-1.30); NEUTROPHILS # (AUTO) 8.9 /CMM (1.8-8.9); NEUTROPHILS % (AUTO) 77.3 % (43.0-81.0); RED BLOOD CELL COUNT(AUTO) 3.52 MIL/uL (4.5-6.0); WHITE BLOOD COUNT (AUTO) 11.5 K/uL (4.3-11.0)
[2019-09-14 06:48] LABS: CALCIUM, SERUM 8.2 mg/dL (8.5-10.1); CREATININE 0.8 mg/dL (0.6-1.3); PHOSPHORUS 2.7 mg/dL (2.5-4.9); POTASSIUM 3.5 mmol/L (3.5-5.1)
--- NOTE | 2019-09-14 07:10 | NUR ---
RN NOTES RECEIVED PATIENT IN BED RESTING COMFORTABLY. PATIENT IS ABLE TO RESPOND TO TACTILE STIMULI. NO FACIAL GRIMACING OR ACUTE DISTRESS AT THIS TIME. RESPIRATION EVEN AND UNLABORED. CALL LIGHT WITHIN REACHED. BED LOCKED AND IN LOWEST POSITION. SAFETY MEASURES IN PLACE. WILL ENDORSE PATIENT TO DAY NURSE.
[2019-09-14 07:35] LABS: EOSINOPHILS % (MANUAL) 1 % (0-4); LYMPHOCYTES % (MANUAL) 16 % (16-48); MONOCYTES % (MANUAL) 6 % (0-11.0); NEUTROPHILS % (MANUAL) 77 (42-76)
[2019-09-14 07:36] LABS: PLATELET COUNT (AUTO) 929 /CMM (150-450)
[2019-09-14 08:00] VITALS: BP_SYST 145; BP_SYST 165; BP_DIAS 95
--- NOTE | 2019-09-14 08:10 | NUR ---
RN NOTE DR HECOTR DOHERTY NOTIFIED ABOUT PT'S PLATELET IS 929. NO NEW ORDERS.
[2019-09-14 08:35] LABS: ABG BASE EXCESS 1.1 mmol/L; ABG OXYGEN SATURATION 93.9 % (92.0-98.5); ABG PCO2 34.5 mmHg (35.0-45.0); ABG PO2 71.8 mmHg (75.0-100.0); AaDO2 87.1 mmHg; COHb 0.2 % (0.5-1.5); MetHb 0.5 % (0.0-1.5); O2Hb 93.2 % (94.0-97.0); SITE, ABG Left Radial; VENT MODE, BG CA 5L 28%
[2019-09-14] MEDS: PANTOPRAZOLE 40 MG/PACK PACK NG SCH (09:53)
[2019-09-14] MEDS: PROSOURCE / PROSTAT (PYXIS) 30 ML UDC GT SCH ×3 (09:53→18:18)
--- NOTE | 2019-09-14 10:41 | NUR ---
DR. LANG NOTIFIED PATIENT HAVING DIAPHRAGMATIC BREATHING 24 SAT ON 97%,ALSO RELAYED EARLY ABG DONE AT 0800,PER DR. LANG PATIENT GETTING TIRED ON COOL AEROSOL AND WITH ORDERS PLACED BACK PATIENT ON AC MODE.NEW ORDERS CARRIED OUT BY ADRIAN BURR,WILL CONTINUE TO MONITOR.
[2019-09-14 12:00] VITALS: BP 137/90
[2019-09-14] MEDS: JEVITY 1.2 CAL 1,000 ML BOTTLE GT PRN (13:09)
[2019-09-14 16:00] VITALS: BP 141/82
--- NOTE | 2019-09-14 19:45 | NUR ---
SERVOMECHANISM ASSEMBLER OPENING NOTES, RECEIVED PATIENT IN BED RESTING, ON VENT, TOLERATING WELL. NO SOB OR ACUTE DISTRESS NOTED AT THIS TIME. PATIENT IS ABLE TO COMMUNICATE HIS NEEDS. ON 2 UPPER SOFT RESTRAINS FOE SAFETY. IV ON LEFT JOCULAR VEIN, PATENT. NO S/S OF INFILTRATION NOTED. KEPT CLEAN AND DRY DURING SEARCH MANAGER. ALL SAFETY MEASURES IN PLACE. BED IN LOW/LOCKED POSITION. WILL CONTINUE TO MONITOR.
[2019-09-14 20:00] VITALS: BP 147/82
--- NOTE | 2019-09-14 20:05 | NUR ---
ANN RN Closing Summary Hand off completed to shift mechanic. Patient is alert and oriented to self, nods head and tries to communicate with lips. Patient was SR 90s on tele monitor. No edema noted. Patient has Navarrete catheter draining clear yellow urine. BM in diaper. Feeding tube is set on 65mL per hour. Patient has tracheostomy. Trach care was provided PRN at 1800 due to blood tinged mucus drainage saturating dressing. Sterile technique was used and a new drain sponge placed. G-Tube dressing site also cleaned and changed. Patient had an episode of respiratory distress today. Placed back on ventilator assist control mode, from prior t piece. Dr. Pete was notified by charge nurse. Patient is currently resting in bed with no s/s of distress. Bed in lowest position, call light within reach, all measures taken to ensure client safety.
[2019-09-15] VITALS: BP 153/79
[2019-09-15 04:00] VITALS: BP 121/78
[2019-09-15 06:50] LABS: BASOPHILS # (AUTO) 0.1 /CMM (0.0-0.2); BASOPHILS % (AUTO) 0.7 % (0.0-2.0); EOSINOPHILS % (AUTO) 2.1 % (0.0-6.0); HEMATOCRIT 27 % (39-51); HEMOGLOBIN 8.5 g/dL (13.5-17.5); LYMPHOCYTES # (AUTO) 1.8 /CMM (0.8-4.8); LYMPHOCYTES % (AUTO) 15.5 % (20.0-44.0); MEAN CORPUSCULAR HGB CONC 31 g/dl (31.0-36.0); MEAN CORPUSCULAR VOLUME 84 fL (80-96); MONOCYTES # (AUTO) 0.7 /CMM (0.1-1.30); MONOCYTES % (AUTO) 6.1 % (2.0-12.0); NEUTROPHILS # (AUTO) 8.6 /CMM (1.8-8.9); NEUTROPHILS % (AUTO) 75.6 % (43.0-81.0); PLATELET COUNT (AUTO) 832 /CMM (150-450); RED BLOOD CELL COUNT(AUTO) 3.24 MIL/uL (4.5-6.0); WHITE BLOOD COUNT (AUTO) 11.4 K/uL (4.3-11.0)
[2019-09-15] MEDS: JEVITY 1.2 CAL 1,000 ML BOTTLE GT PRN (06:50)
[2019-09-15 07:12] LABS: CALCIUM, SERUM 8.5 mg/dL (8.5-10.1); CREATININE 0.8 mg/dL (0.6-1.3); POTASSIUM 3.8 mmol/L (3.5-5.1)
--- NOTE | 2019-09-15 07:57 | NUR ---
DIRECTOR FIXED INCOME CLOSING NOTES, PATIENT IN BED RESTING, ON VENT, TOLERATING WELL. NO SOB OR ACUTE DISTRESS NOTED AT THIS TIME. PATIENT IS ABLE TO COMMUNICATE HIS NEEDS. ON 2 UPPER SOFT RESTRAINS FOE SAFETY. KEPT CLEAN AND DRY DURING PANEL COVERER. ALL SAFETY MEASURES IN PLACE. BED IN LOW/LOCKED POSITION. ENDORSED THE PATIENT TO AM RN FOR MICHELA.
[2019-09-15 08:00] VITALS: BP 161/92
--- NOTE | 2019-09-15 08:00 | NUR ---
MASTER CRAFTSMAN C NOTES, PATIENT IN BED RESTING, ON VENT SETTING ORDERED TOLERATING WELL. NO SOB OR ACUTE DISTRESS NOTED AT THIS TIME. PATIENT IS ABLE TO COMMUNICATE HIS NEEDS. ON 2 UPPER SOFT RESTRAINS FOR SAFETY. KEPT CLEAN AND DRY DURING OIL BAY TECHNICIAN. ALL SAFETY MEASURES IN PLACE. BED IN LOW/LOCKED POSITION.ON TELE MONITOR SR 77, LIJ TLC IG TKO IN PLACED, BED IN LOWEST AND LOCKED POSITION
[2019-09-15] MEDS: PANTOPRAZOLE 40 MG/PACK PACK NG SCH (09:01)
[2019-09-15] MEDS: PROSOURCE / PROSTAT (PYXIS) 30 ML UDC GT SCH ×3 (09:02→16:12)
[2019-09-15] MEDS: CLONIDINE HCL 0.1 MG TABLET GT PRN (09:02)
--- NOTE | 2019-09-15 11:00 | NUR ---
television specialist note resting comfortably, on vent setting as ordered ,all needs attend ,make bm ,keep clean dry ,will monitor
[2019-09-15 12:00] VITALS: BP_SYST 118; BP_SYST 130; BP_DIAS 76; BP_DIAS 92
--- NOTE | 2019-09-15 15:04 | NUR ---
CIRCULATING PROCESS INSPECTOR NOTE UNABLE TO REMOVE SOFT RETRAIN, PATIENT AT RISK FOR REMOVE ALL LINE WILL MONITOR
--- NOTE | 2019-09-15 15:30 | NUR ---
FEATHERER NOTE [facility]ESSING [facility] PROTOCOL , KEEP CLEAN DRY
[2019-09-15 16:00] VITALS: BP 127/78
--- NOTE | 2019-09-15 16:02 | NUR ---
supervisor television chassis repair note na 148, nga dnp notified with order flush g tube 150 ml q6 hour
[2019-09-15] MEDS ORDERED: MISCELLANEOUS MED 1 EA EA GT ONE (18:00)
--- NOTE | 2019-09-15 19:30 | NUR ---
MOLDER MACHINE OPENING NOTE RECEIVED PATIENT IN BED. A/O X1-2, PER REPORT PATIENT TRIES TO SPEAK. PATIENT ON VENTILATOR, SETTINGS INCLUDE SHILEY #8, AC 12, TV 50 FIO2 50 PEEP 5. EXTERNAL TELE MONITOR READS SINUS RHYTHM HR 65. IN NO APPARENT DISTRESS. NO S/S PAIN AT THIS TIME. IV ACCESS IN LEFT IJ CENTAL LINE, RIGHT FOREARM #20 RUNNING TKO. IRIZARRY CATHETER IS PRESENT, DRAINING TO GRAVITY, URINE IS YELLOW. GTUBE IS PRESENT, ASPIRATED, 10 ML RESIDUAL, FLUSHED WITH 60ML, NO RESISTANCE, FEEDING OF JEVITY 1.2 RUNNING AT 65ML/HR. PATIENT HAD BILATERAL SOFT WRIST RESTRAINTS, TWO FINGER BREATHS OF SPACE BETWEEN RESTRAINT AND SKIN, NO REDNESS OR BRUISING NOTED AT THIS TIME. BED IS LOW AND LOCKED, HOB ELEVATED IN SEMI FOWLERS, SIDE RAILS UP X2, BED ALARM ON. CALL LIGHT WITHIN REACH. WILL CONTINUE TO MONITOR.
[2019-09-15 20:00] VITALS: BP 142/77
--- NOTE | 2019-09-15 20:00 | NUR ---
BARGE HAND NOTE ADMINISTERED A FREE WATER FLUSH OF 150ML THROUGH GTUBE ORDERED. WILL CONTINUE TO MONITOR.
[2019-09-16] VITALS: BP 149/93
--- NOTE | 2019-09-16 02:00 | NUR ---
CATALOGUE LIBRARIAN NOTE ADMINISTERED A FREE WATER FLUSH OF 150ML THROUGH GTUBE ORDERED. WILL CONTINUE TO MONITOR.
[2019-09-16 04:00] VITALS: BP 159/90
[2019-09-16] MEDS: JEVITY 1.2 CAL 1,000 ML BOTTLE GT PRN ×2 (04:00→20:26)
--- NOTE | 2019-09-16 06:46 | NUR ---
DISEASE EDUCATION SPECIALIST CLOSING NOTE PATIENT IN BED. A/O X1-2. PATIENT ON VENTILATOR, SETTINGS INCLUDE SHILEY #8, AC 12, TV 50 FIO2 50 PEEP 5. EXTERNAL TELE MONITOR READS SINUS RHYTHM HR 65. NO DISTRESS NOTED. NO S/S PAIN THROUGHOUT SHIFT. IV ACCESS MAINTAINED IN LEFT IJ CENTAL LINE, RIGHT FOREARM #20 RUNNING TKO. LIJ CENTRAL LINE WAS NOT REMOVED D/T [facility] ICU NURSE AVAILABLE TO REMOVE IT. IRIZARRY CATHETER IS MAINTAINED DRAINING TO GRAVITY, URINE IS YELLOW, OUTPUT 300. GTUBE IS MAINTAINED, FEEDING OF JEVITY 1.2 RUNNING AT 65ML/HR. PATIENT REMAINS WITH BILATERAL SOFT WRIST RESTRAINTS, TWO FINGER BREATHS OF SPACE BETWEEN RESTRAINT AND SKIN, NO REDNESS OR BRUISING NOTED. BED IS LOW AND LOCKED, HOB ELEVATED IN SEMI FOWLERS, SIDE RAILS UP X2, BED ALARM ON. CALL LIGHT WITHIN REACH. WILL ENDORSE TO NEXT SHIFT.
--- NOTE | 2019-09-16 07:25 | NUR ---
FILE CLERK DATA ENTRY OPENING NOTE RECEIVED BEDSIDE REPORT. PATIENT IN BED, ON VENTILATOR, TOLERATING SETTINGS WELL, NO SIGNS OF RESPIRATORY DISTRESS NOTED. SINUS RHYTHM ON TELE MONITOR. IRIZARRY CATH INTACT, PATENT, DRAINING ISABEL CLEAR URINE. JEVITY INFUSING AT 65CC/HR, TOLERATING FEEDING WELL. RIGHT FOREARM G20 INTACT, PATENT. IV ACCESS MAINTAINED IN LEFT IJ CENTAL LINE. WAITING FOR ICU NURSE TO REMOVE IT. BILATERAL SOFT WRIST RESTRAINTS INTACT, TWO FINGER BREATHS OF SPACE BETWEEN RESTRAINT AND SKIN, CHECKED SKIN FOR CIRCULATION, BILATERAL PULSES PRESENT. BED IS LOW AND LOCKED, HOB ELEVATED, SIDE RAILS UP X2, BED ALARM ON, CALL LIGHT WITHIN REACH.
[2019-09-16 08:00] VITALS: BP 167/90
[2019-09-16] MEDS: PROSOURCE / PROSTAT (PYXIS) 30 ML UDC GT SCH ×3 (08:21→16:41)
[2019-09-16] MEDS: PANTOPRAZOLE 40 MG/PACK PACK NG SCH (08:21)
[2019-09-16] MEDS: CLONIDINE HCL 0.1 MG TABLET GT PRN (08:32)
[2019-09-16 12:00] VITALS: BP 152/77
[2019-09-16 16:00] VITALS: BP_SYST 160; BP_SYST 173; BP_DIAS 86; BP_DIAS 91
--- NOTE | 2019-09-16 17:00 | NUR ---
TELMETRY NURSE , LEFT NECK CENTRAL LINE DISCONTINUED WITH ASEPTIC TECH.PRESSURE DRESSING APPLIED X 10 MIN. COVERED WITH STERILE DRESSING NO SIGNS OF REDNESS OR SWELLING NOTED
--- NOTE | 2019-09-16 19:21 | NUR ---
RT NOTES PT RECEIVED TRACHED ON [facility] VENT ON CHARTED SETTINGS. NO SIGNS OF RESP DISTRESS/SOB NOTED. AIRWAY PATENT AND SECURED. GREEN PIPEFITTER DONE. PT SUCTION. ALARMS SE AND AUDIBLE. AMBUBAG AND SPARE TRACH AT BEDSIDE. WILL CONT TO MONITOR. Addendum: 09/16/19 at 2057 by MARYSE WHITKAER RT Amended: Links added.
--- NOTE | 2019-09-16 19:30 | NUR ---
RN OPENING NOTES: PATIENT IN BED. ON VENT TRACH WITH CURRENT SETTINGS ORDERED, TOLERATING WELL. NO RESPIRATORY DISTRESS. NO S/S OF PAIN. NO FACIAL GRIMACING. ON GTF, NO RESIDUAL. GT SITE DRY AND INTACT. HOB ELEVATED. ON IRIZARRY, INTACT AND PATENT, DRAINING CLEAR YELLOW URINE. WILL TURN AND REPOSITION Q2H. ON BILATERAL SOFT WRIST RESTRAINTS ORDERED. SKIN WARM TO TOUCH WITH GOOD CIRCULATION. IV ACCESS (R) FA G20 C/D/I, FLUSHING WELL, TKO. BED LOCKED, ALARM ON, LOW POSITION. CALL LIGHT WITHIN REACH. WILL CONT. TO MONITOR.
[2019-09-16 20:00] VITALS: BP 149/81
[2019-09-17] VITALS (7 sets, daily range): BP systolic 140–164; BP diastolic 73–94
[2019-09-17] MEDS: ACETAMINOPHEN 325 MG TABLET PO PRN (06:03)
--- NOTE | 2019-09-17 06:47 | NUR ---
RN CLOSING NOTES: PATIENT IN BED. RESPONSIVE WITH SPONTANEOUSLY OPENING HIS EYES. ABLE TO MOUTH WORDS AND ANSWER SIMPLE QUESTIONS BY NODDING AND SHAKING HEAD. ON VENT TRACH WITH CURRENT SETTINGS ORDERED, TOLERATING WELL. NO RESPIRATORY DISTRESS. ON GTF, NO RESIDUAL. GT SITE DRY AND INTACT. HOB ELEVATED. ON IRIZARRY, INTACT AND PATENT, DRAINING CLEAR YELLOW URINE. TURNED AND REPOSITIONED Q2H. ON BILATERAL SOFT WRIST RESTRAINTS ORDERED. SKIN WARM TO TOUCH WITH GOOD CIRCULATION. IV ACCESS (R) FA G20 C/D/I, FLUSHING WELL, TKO. BED LOCKED, ALARM ON, LOW POSITION. CALL LIGHT WITHIN REACH. WILL ENDORSE TO AM SHIFT NURSE FOR CONTINUITY OF CARE.
--- NOTE | 2019-09-17 08:53 | NUR ---
RT NOTE Pt placed on CPAP mode per md orders. Pt awake and alert. Abg to be taken in 1 hr. Will continue to monitor closely. Addendum: 09/17/19 at 0932 by CATA NUNEZ RT Amended: Links added.
[2019-09-17] MEDS: PROSOURCE / PROSTAT (PYXIS) 30 ML UDC GT SCH ×3 (09:07→17:12)
[2019-09-17] MEDS: PANTOPRAZOLE 40 MG/PACK PACK NG SCH (09:07)
[2019-09-17 12:36] LABS: ABG BASE EXCESS -0.1 mmol/L; ABG OXYGEN SATURATION 97.8 % (92.0-98.5); ABG PCO2 35.1 mmHg (35.0-45.0); ABG PH 7.448 (7.350-7.450); ABG PO2 119.7 mmHg (75.0-100.0); AaDO2 197.3 mmHg; MetHb 0.5 % (0.0-1.5); O2Hb 97.3 % (94.0-97.0); PEEP,BG 5 cm H2O; SITE, ABG Right Radial; VENT MODE, BG CPAP PS 12
[2019-09-17] MEDS: JEVITY 1.2 CAL 1,000 ML BOTTLE GT PRN (13:55)
--- NOTE | 2019-09-17 17:22 | NUR ---
RT NOTE PATIENT RECEIVED ON MECHANICAL VENT WITH ORDERED SETTINGS. ALARMS ON AND AUDIBLE. VENT PLUGGED IN TO RED OUTLET. TRACH TUBE IN PLACE, PATENT, AND SECURED WITH TRACH TIE. BACK UP TRACH AND AMBU BAG BY THE BEDSIDE. PATIENT TOLERATING CPAP OF 5 PS 12, FIO2 50% WELL BASED ON ABG. NO DISTRESS AT THIS TIME.
--- NOTE | 2019-09-17 19:22 | NUR ---
Handoff to [facility] team. Shin Ballard
[2019-09-17] MEDS: LORAZEPAM INJ 2 MG/ML VIAL IV PRN (21:47)
[2019-09-18] VITALS (7 sets, daily range): BP systolic 116–146; BP diastolic 64–82
[2019-09-18] MEDS: JEVITY 1.2 CAL 1,000 ML BOTTLE GT PRN (05:17)
--- NOTE | 2019-09-18 08:23 | NUR ---
RT NOTES PT REC'D TRACHED ON [facility] VENT ON CHARTED SETTINGS. NO SIGNS OF RESP DISTRESS/SOB NOTED AT THIS TIME. AIRWAY PATENT AND SECURED. GUM MAKER DONE. PT SUCTION. ALARMS SE AND AUDIBLE. AMBUBAG AND SPARE TRACH AT BEDSIDE. WILL CONT TO MONITOR. Addendum: 09/18/19 at 0824 by ANIVAL HERNÁNDEZ RT Amended: Links added.
[2019-09-18] MEDS: PANTOPRAZOLE 40 MG/PACK PACK NG SCH (09:03)
[2019-09-18] MEDS: PROSOURCE / PROSTAT (PYXIS) 30 ML UDC GT SCH ×3 (09:03→17:13)
--- NOTE | 2019-09-18 18:39 | NUR ---
cloth winder machine operator Notes 0700- Received patient in bed in stable condition from night warehouse selector. No acute events noted. VSS. Patient is alert and oriented to self. Mouths words, arousable to sound and touch. Patient is vented. Shiley 8, CPAP 5, FIO2 50%, PEEP 5 , PS 12. Sinus rhythm on tele monitor. Wounds noted on feet, no skin changes from baseline. Patient is on restraints. circulation intact, neuro intact, cap refill less then 3. Patient receiving Jevity 65mL per hour. RFA 20g flushing well, dressing intact. Closing- Patient is resting in bed comfortably, no acute events noted. VSS. Wound care done as ordered. Medication given as ordered. Bed in lowest position, call light within reach, will endorse care to oncoming shift.
--- NOTE | 2019-09-18 19:10 | NUR ---
TELE/RN NOTES PATIENT CONTINUES TO REMAIN IN STABLE CONDITION THROUGHOUT THE SHIFT. PROVIDED COMFORT AND SAFETY. PATIENT ABLE TO TOLERATE MEDS AND FEEDING WELL. HOB ELEVATED AT ALL TIMES. ALL NEEDS ANTICIPATED. CALL LIGHT WITHIN REACHED. BED LOCKED AND IN LOWEST POSITION. SAFETY MAINTAINED. REPOSITIONED Q2HRS. WILL CONTINUE TO MONITOR CLOSELY. ENDORSED TO PM NURSE FOR MICHELA.
--- NOTE | 2019-09-18 19:41 | NUR ---
RT NOTES PT RECEIVED TRACHED ON [facility] VENT ON CHARTED SETTINGS. NO SIGNS OF RESP DISTRESS/SOB NOTED. AIRWAY PATENT AND SECURED. FRONT WORKER DONE. PT SUCTION. ALARMS SE AND AUDIBLE. AMBUBAG AND SPARE TRACH AT BEDSIDE. WILL CONT TO MONITOR. Addendum: 09/18/19 at 2332 by MARYSE WHITAKER RT Amended: Links added.
[2019-09-19] VITALS (8 sets, daily range): BP systolic 121–169; BP diastolic 48–97
[2019-09-19] MEDS: JEVITY 1.2 CAL 1,000 ML BOTTLE GT PRN (05:55)
[2019-09-19 07:36] LABS: BASOPHILS # (AUTO) 0.1 /CMM (0.0-0.2); EOSINOPHILS % (AUTO) 3.9 % (0.0-6.0); HEMATOCRIT 23 % (39-51); HEMOGLOBIN 7.6 g/dL (13.5-17.5); LYMPHOCYTES # (AUTO) 1.1 /CMM (0.8-4.8); LYMPHOCYTES % (AUTO) 14.3 % (20.0-44.0); MEAN CORPUSCULAR HGB CONC 33 g/dl (31.0-36.0); MEAN CORPUSCULAR VOLUME 84 fL (80-96); MONOCYTES # (AUTO) 0.7 /CMM (0.1-1.30); MONOCYTES % (AUTO) 8.8 % (2.0-12.0); NEUTROPHILS # (AUTO) 5.8 /CMM (1.8-8.9); PLATELET COUNT (AUTO) 561 /CMM (150-450); RED BLOOD CELL COUNT(AUTO) 2.78 MIL/uL (4.5-6.0)
[2019-09-19 08:09] LABS: CALCIUM, SERUM 8.3 mg/dL (8.5-10.1); CREATININE 0.8 mg/dL (0.6-1.3); PHOSPHORUS 3.2 mg/dL (2.5-4.9); POTASSIUM 4.1 mmol/L (3.5-5.1)
[2019-09-19] MEDS: PROSOURCE / PROSTAT (PYXIS) 30 ML UDC GT SCH ×3 (09:14→18:11)
[2019-09-19] MEDS: PANTOPRAZOLE 40 MG/PACK PACK NG SCH (09:14)
[2019-09-19] MEDS: LORAZEPAM INJ 2 MG/ML VIAL IV PRN ×3 (10:42→22:08)
[2019-09-19] MEDS: ACETAMINOPHEN 325 MG TABLET PO PRN (12:19)
--- NOTE | 2019-09-19 12:25 | NUR ---
PATIENT C/O FEVER 10.5,SHAKING,TACHYCARDIC 120'S ,BP 135/48,DR. AKBAR MADE AWARE,PRN TYLENOL,COOLING MEASURES INITIATED.
--- NOTE | 2019-09-19 12:27 | NUR ---
ADDENDUM [id number]
--- NOTE | 2019-09-19 13:05 | NUR ---
NOTIFIED ID WITH NEW ORDERS LEFT ,WILL SEND CULTURES ORDERED.
[2019-09-19] MEDS ORDERED: IV NS 0.9% 500 ML IV ONE ×2 (13:30→20:00)
[2019-09-19] MEDS ORDERED: FEE PK DOSING 1 MIN EA MC ONE (13:38)
--- NOTE | 2019-09-19 13:41 | NUR ---
SUTURE ON TRACH REMOVED BY ADRIAN ANDRES
[2019-09-19] MEDS ORDERED: MEROPENEM 500 MG in IV NS 0.9% 50 ML IV ONE (14:00)
--- NOTE | 2019-09-19 14:00 | NUR ---
URINE CULTURE AND WOUND CULTURE COLLECTED AND SEND TO LAB.
[2019-09-19] MEDS: MEROPENEM 1 G in IV NS 0.9% 100 ML IV SCH ×2 (15:43→22:08)
[2019-09-19] MEDS: VANCOMYCIN 1 GM in IV D5W 250 ML IV SCH (15:44)
--- NOTE | 2019-09-19 19:00 | NUR ---
electron beam photo mask technician Notes 0700- Received patient in bed in stable condition from shift production supervisor. No acute events noted. VSS. Patient is alert and oriented to self. Mouths words, arousable to sound and touch. Patient is vented. Shiley 8, CPAP 5, FIO2 50%, PEEP 5 , PS 12. Sinus rhythm on tele monitor. Wounds noted on feet, no skin changes from baseline. Patient is on restraints. circulation intact, neuro intact, cap refill less then 3. Patient receiving Jevity 65mL per hour. No residuals. RFA 20g flushing well, dressing intact. 0900- IV site changed to new vein on RFA 20g 1215- Patient noticed in bed shaking with fever. Rectal temp taken at the time 101.4, cooling measures immediately started. Ice pack placed in groin and axilae. MD notified via charge nurse. Tylenol 650mg given PRN. Central supply called for cooling blanket. 1300- Sutures removed with respiratory therapy. CX taken from suture site. Erythema noted under trach flange. CX of urine obtained. CX of G-Tube site also obtained. G-Tube site care performed per hospital policy. 1400- Temperature reduction noted per rectal probe. New Temp 99.3. IV ABX initiated per MD order and blood cx obtained x2. 1900- Patient cooling measures still initiated with cooling blanket. Patient temp 99.2 rectal. Hand off completed with shift production supervisor. Bed in lowest and locked position, call light within reach, all measures taken to ensure client safety. Care endorsed to shift production supervisor. .
--- NOTE | 2019-09-19 19:30 | NUR ---
DITTO MACHINE OPERATOR NOTES PER RT PT WILL REMAIN SAME SETTING PERVIOUS NO CHANGE AT THIS TIME. MD IS AWARE PATIENT TOLERATING WELL. Addendum: 09/20/19 at 0159 by HATTIE ORELLANA RN Amended: Links added.
--- NOTE | 2019-09-19 19:56 | NUR ---
RN NOTES RECEIVED PATIENT IN BED RESTING. ON VENT TRACH WITH CURRENT SETTINGS ORDERED, TOLERATING WELL. BREATHING NORMAL NO RESPIRATORY DISTRESS. NO S/S OF PAIN. NO FACIAL GRIMACING. ON GTF JEVITY 1.2@65ML/HR, NO RESIDUAL. GT SITE CLEAN DRY AND INTACT. HOB ELEVATED. ON IRIZARRY, INTACT AND PATENT, DRAINING CLEAR YELLOW URINE. TURNING AND REPOSITIONING Q2H FOR SKIN MANAGEMENT. WOUND DRESSING INTACT CLEAN AND DRY. ON BILATERAL SOFT WRIST RESTRAINTS ORDERED. SKIN WARM AND DRY TO TOUCH. IV ACCESS ON RT WRIST G20 INTACT, PATENT, FLUSHING WELL, TKO RUNNING WELL. KEPT CLEAN AND DRY. SAFETY MEASURES IN PLACE, BED LOCKED AND LOWER POSITION, ALARM ON, CALL LIGHT WITHIN REACH. WILL CONT WITH PLAN OF CARE.
--- NOTE | 2019-09-19 19:58 | NUR ---
RN NOTES URINE OUTPUT NOTED 175ML AT THIS TIME. URINE YELLOW AND CLEAR NOT SEDIMENTATION NOTED. WILL CONT TO MONITOR.
--- NOTE | 2019-09-19 21:00 | NUR ---
RN NOTES URINE OUT PUT NOTED 250ML NOTED AT THIS TIME.
--- NOTE | 2019-09-19 22:00 | NUR ---
STUDIO DIRECTOR NOTE PATIENT IS URINATING WELL. URINE OUT PUT ADDITIONAL 200ML NOTED. HELD 500ML BOLUS NS, DNP MEGGAN NOTIFIED.
[2019-09-20] VITALS (9 sets, daily range): BP systolic 90–151; BP diastolic 35–86
[2019-09-20] MEDS: JEVITY 1.2 CAL 1,000 ML BOTTLE GT PRN ×2 (01:10→19:21)
[2019-09-20] MEDS: VANCOMYCIN 1 GM in IV D5W 250 ML IV SCH ×2 (03:39→16:00)
[2019-09-20] MEDS: MEROPENEM 1 G in IV NS 0.9% 100 ML IV SCH ×3 (05:57→21:41)
--- NOTE | 2019-09-20 06:51 | NUR ---
HYDRAULIC MECHANIC NOTES PATIENT IN BED RESTING, ON VENT SETTING ORDERED TOLERATING WELL. NO SOB OR ACUTE DISTRESS NOTED AT THIS TIME. ON 2 UPPER SOFT RESTRAINS FOR SAFETY. KEPT CLEAN AND DRY DURING FLATWORK PRESSER. ALL SAFETY MEASURES IN PLACE. BED IN LOW/LOCKED POSITION. ON TELE MONITOR SR 78 WITH PVC, BED IN LOWEST AND LOCKED POSITION. ENDORSE PATIENT TO NELA SHIFT NURSE.
[2019-09-20 07:37] LABS: CALCIUM, SERUM 8.4 mg/dL (8.5-10.1); CREATININE 0.8 mg/dL (0.6-1.3); POTASSIUM 3.9 mmol/L (3.5-5.1)
--- NOTE | 2019-09-20 07:40 | NUR ---
TELE/RN NOTE THE PATIENT IS RECEIVED IN BED. PATIENT IS NOT ALERT OR ORIENTE BUT OPENS EYES TO TACTILE STIMULI.THE PATIENT IS VENT, TACH AND TOLERATES IT WELL.EXTERNAL TELE BOX READING IS SR WITH PAC AT 79. GT FEEDING JEVITY 1.2 INFUSING AT 65ML/HR. THE PATIENT IN NO APPARENT DISTRESS. RESTRAINS ON PER ORDER. NO S/S POOR CIRCULATION OR SKIN BREAKDOWN NOTED DUE TO RESTRAINS. RFA G 20 PATENT AND SALINE LOCKED. BED LOW AND LOCKED. SIDE RAILS UP X3. CALL LIGHT WITHIN REACH. WILL CONTINUE TO MONITOR.
[2019-09-20] MEDS: PANTOPRAZOLE 40 MG/PACK PACK NG SCH (08:39)
[2019-09-20] MEDS: PROSOURCE / PROSTAT (PYXIS) 30 ML UDC GT SCH ×3 (08:40→16:00)
[2019-09-20] MEDS: ACETAMINOPHEN 325 MG TABLET PO PRN (12:26)
--- NOTE | 2019-09-20 12:26 | NUR ---
TELE/RN NOTE TYLENOL 650 MG VIA GT GIVEN DUE TO TEMP OF 100.5. COOLING BLANKET IS PUT ON PRIOR GIVING MEDICATION BUT NO CHANGE IN TEMP WAS NOTED. WILL CONTINUE TO MONITOR
--- NOTE | 2019-09-20 12:45 | NUR ---
TELE/RN NOTE TEMP DECREASED TO 98.1. THE PATIENT IS IN NO APPARENT DISTRESS.
--- NOTE | 2019-09-20 18:12 | NUR ---
TELE/RN NOTE THE PATIENT IS OPENS EYES TO TACTILE STIMULI. TOLERATES VENT AND TRACH. RESTRAINS ON PER ORDER AND SKIN ASSESSED AND NO SKIN BREAKDOWN OR S/S POOR CIRCULATION NOTED. FHA G 20 PATENT AND SALINE LOCKED. GT FEEDING JEVITY 1.2 INFUSING AT 60ML/HR AND NO RESIDUAL NOTED. ABDOMEN SOFT AND NON-DISTENDED. WOUND DRESSINGS DONE PER ORDER AND THE PATIENT TOLERATED IT WELL. BED LOW AND LOCKED. SIDE RAILS UP X3. CALL LIGHT WITHIN REACH. WILL ENDORSE TO SAP BASIS ADMINISTRATOR.
--- NOTE | 2019-09-20 19:20 | NUR ---
FINISHER MERCHANT [employer]ODUCTS OPENING NOTES Received patient awake on bed. On vent with setting noted, no SOB/respiratory distress noted. With bilateral soft wrist restraints for agitation and unsafe behavior. On fall and aspiration precautions. Will continue to monitor accordingly.
[2019-09-20] MEDS: LORAZEPAM INJ 2 MG/ML VIAL IV PRN (19:29)
[2019-09-21] VITALS: BP 148/77
[2019-09-21] MEDS: LORAZEPAM INJ 2 MG/ML VIAL IV PRN ×4 (01:06→15:20)
[2019-09-21] MEDS: VANCOMYCIN 1 GM in IV D5W 250 ML IV SCH ×2 (02:58→15:03)
[2019-09-21 04:00] VITALS: BP 164/78
[2019-09-21] MEDS: MEROPENEM 1 G in IV NS 0.9% 100 ML IV SCH ×2 (05:29→14:10)
--- NOTE | 2019-09-21 06:27 | NUR ---
STRETCHER HELPER CLOSING NOTES Patient asleep on bed, easily awaken. On vent with settings noted, no SOB/respiratory distress noted. Suctioned PRN. With bilateral soft wrist restraints as ordered. On tele monitor with Sinus Rhythm while awake with occasional Sinus Tach, patient noted sinus michael while asleep. Due meds given as ordered. All nursing needs attended. No new unusualities noted. Kept on bed clean, dry and comfortable. Call light within easy reach. On fall and aspiration precautions. Endorsed.
[2019-09-21 06:43] LABS: BASOPHILS # (AUTO) 0.1 /CMM (0.0-0.2); BASOPHILS % (AUTO) 0.7 % (0.0-2.0); EOSINOPHILS % (AUTO) 4.6 % (0.0-6.0); HEMATOCRIT 25 % (39-51); HEMOGLOBIN 7.7 g/dL (13.5-17.5); LYMPHOCYTES # (AUTO) 1.1 /CMM (0.8-4.8); LYMPHOCYTES % (AUTO) 10.4 % (20.0-44.0); MEAN CORPUSCULAR HGB CONC 32 g/dl (31.0-36.0); MEAN CORPUSCULAR VOLUME 84 fL (80-96); MONOCYTES % (AUTO) 9.9 % (2.0-12.0); NEUTROPHILS # (AUTO) 7.8 /CMM (1.8-8.9); NEUTROPHILS % (AUTO) 74.4 % (43.0-81.0); PLATELET COUNT (AUTO) 478 /CMM (150-450); RED BLOOD CELL COUNT(AUTO) 2.91 MIL/uL (4.5-6.0); WHITE BLOOD COUNT (AUTO) 10.5 K/uL (4.3-11.0)
[2019-09-21 07:09] LABS: CREATININE 0.8 mg/dL (0.6-1.3); MAGNESIUM 1.9 mg/dL (1.8-2.4); PHOSPHORUS 2.7 mg/dL (2.5-4.9); POTASSIUM 4.6 mmol/L (3.5-5.1)
--- NOTE | 2019-09-21 07:38 | NUR ---
TELE/RN OPENING NOTES PATIENT ASLEEP ON THE BED,EASILY AWAKEN. ON VENT ON SETTING NOTED. NO SOB OR RESPIRATORY DISTRESS NOTED. WITH BILATERAL SOFT RESTRAINED ORDER. ON TELE MONITOR AT SINUS RHYTHM. WILL CONTINUE TO MONITOR.
[2019-09-21 08:00] VITALS: BP 139/75
[2019-09-21] MEDS: PANTOPRAZOLE 40 MG/PACK PACK NG SCH (09:05)
[2019-09-21] MEDS: PROSOURCE / PROSTAT (PYXIS) 30 ML UDC GT SCH ×2 (09:05→12:19)
[2019-09-21 12:00] VITALS: BP 109/83
[2019-09-21] MEDS: ACETAMINOPHEN 325 MG TABLET PO PRN (12:09)
[2019-09-21] MEDS ORDERED: CLON0.1T14 GT (14:20)
[2019-09-21] MEDS ORDERED: MERO500V21 IV (14:20)
[2019-09-21] MEDS ORDERED: LACT-209 GT (14:20)
[2019-09-21] MEDS ORDERED: PANT40SU2 NG (14:20)
[2019-09-21] MEDS ORDERED: ACET325T53 PO (14:20)
[2019-09-21] MEDS ORDERED: ALBUT2 NEB (14:20)
[2019-09-21] MEDS: JEVITY 1.2 CAL 1,000 ML BOTTLE GT PRN (14:20)
[2019-09-21] MEDS ORDERED: ALLA266C2 TP (14:20)
[2019-09-21] MEDS ORDERED: Prosource GT (14:20)
[2019-09-21] MEDS ORDERED: VANC1PLA9 IV (14:20)
--- NOTE | 2019-09-21 17:40 | NUR ---
TELE/RN NOTE PATIENT IS ALERT AND ORIENTED X1 NO VERBAL. TRACH TUBE IN PLACED. SATURATION OF 97%. NO RESPIRATORY DISTRESS NOTED. PATIENT SEEN AND EXAMINED BY MD WITH ORDER MADE AND CARRIED OUT. ALL DUE MEDS WAS GIVEN . PEG TUBE IN PLACE AND DRY AND INTACT. [facility]IVE REPORT TO D[facility]. LEFT THE HOSPITAL IN STABLE CONDITION. ACCOMPANIED BY 2 EMT VIA AMBULANCE.
== END 2019-09-21 18:00 | DRG 4 ==
LOC: ER 11:44 → TELE1 14:05 → MEDSG1 08-29 17:39 → ICU 08-31 13:00 → TELE1 09-10 10:56 → TELE-TD 09-10 19:34 → TELE1 09-14 12:07
PROVIDERS: ADMIT Internal Medicine; ATTEND Nurse Practitioner Acute Care
PROC: 0HBRXZZ Excision of Toe Nail, External Approach (ICD-10-PCS; 2019-08-30)
PROC: B548ZZA Ultrasonography of Superior Vena Cava, Guidance (ICD-10-PCS; principal; 2019-08-31)
PROC: 5A1955Z Respiratory Ventilation, Greater than 96 Consecutive Hours (ICD-10-PCS; principal; 2019-08-31)
PROC: 0BH18EZ Insertion of Endotracheal Airway into Trachea, Via Natural or Artificial Opening Endoscopic (ICD-10-PCS; principal; 2019-08-31)
PROC: 02HV33Z Insertion of Infusion Device into Superior Vena Cava, Percutaneous Approach (ICD-10-PCS; principal; 2019-08-31)
PROC: 30233N1 Transfusion of Nonautologous Red Blood Cells into Peripheral Vein, Percutaneous Approach (ICD-10-PCS; 2019-09-01)
PROC: 0B110F4 Bypass Trachea to Cutaneous with Tracheostomy Device, Open Approach (ICD-10-PCS; 2019-09-09)
PROC: 0DH63UZ Insertion of Feeding Device into Stomach, Percutaneous Approach (ICD-10-PCS; 2019-09-11)
DX: J15.6 Pneumonia due to other Gram-negative bacteria (principal); N17.0 Acute kidney failure with tubular necrosis; R65.21 Severe sepsis with septic shock; I21.A1 Myocardial infarction type 2; E43 Unspecified severe protein-calorie malnutrition; A41.9 Sepsis, unspecified organism; J96.02 Acute respiratory failure with hypercapnia; J96.01 Acute respiratory failure with hypoxia; G93.41 Metabolic encephalopathy; I50.33 Acute on chronic diastolic (congestive) heart failure; I96 Gangrene, not elsewhere classified; I13.0 Hypertensive heart and chronic kidney disease with heart failure and stage 1 through stage 4 chronic kidney disease, or unspecified chronic kidney disease; J98.11 Atelectasis; J44.0 Chronic obstructive pulmonary disease with (acute) lower respiratory infection; E87.2 Acidosis; E87.0 Hyperosmolality and hypernatremia; N39.0 Urinary tract infection, site not specified; R62.7 Adult failure to thrive; E03.9 Hypothyroidism, unspecified; I48.91 Unspecified atrial fibrillation; K21.9 Gastro-esophageal reflux disease without esophagitis; K29.70 Gastritis, unspecified, without bleeding; G62.9 Polyneuropathy, unspecified; I73.9 Peripheral vascular disease, unspecified; M19.90 Unspecified osteoarthritis, unspecified site; R53.1 Weakness; D63.8 Anemia in other chronic diseases classified elsewhere; Z73.6 Limitation of activities due to disability; N18.9 Chronic kidney disease, unspecified; M20.42 Other hammer toe(s) (acquired), left foot; M20.41 Other hammer toe(s) (acquired), right foot; D50.9 Iron deficiency anemia, unspecified; L97.519 Non-pressure chronic ulcer of other part of right foot with unspecified severity; L97.529 Non-pressure chronic ulcer of other part of left foot with unspecified severity; M10.9 Gout, unspecified; R29.6 Repeated falls; M62.50 Muscle wasting and atrophy, not elsewhere classified, unspecified site; E86.1 Hypovolemia; R13.10 Dysphagia, unspecified; Z59.0 Homelessness; E88.09 Other disorders of plasma-protein metabolism, not elsewhere classified
CPT/HCPCS: 31720; 36415; 36600; 43246; 71045-TC; 73630-TC; 76770-TC; 80048-TC; 80053-TC; 80061-TC; 80202-TC; 81000-TC; 82272-TC; 82550-TC; 82570-TC; 82728-TC; 82803-TC; 82962-TC; 83540-TC; 83735-TC; 83970; 84100-TC; 84155; 84155-TC; 84165; 84300-TC; 84439-TC; 84443-TC; 84478-TC; 84484-TC; 85025-TC; 85730-TC; 86850-TC; 86921-TC; 87040-TC; 87070-TC; 87081-TC; 87086-TC; 87186-TC; 93307-TC; 94002-TC; 94003-TC; 94640-TC; 94760-TC; 94762-TC; 94799-TC; 97112-TC; 97116-TC; 97530-TC; 99082-TC; A4216; A4217; A4623; A6253; A6403; A7526; C1751; C9113; G0378; J0690; J1265; J1650; J1940; J2060; J2185; J2543; J2704; J2916; J3370; J3475; J3480; J3490; J7030; J7040; J7042; J7050; J7060; P9016-BL; P9047

== ENCOUNTER 2020-02-15 20:13 | Emergency (ER) | payer MEDICARE, OTHER ==
[~2020-02-15] VITALS: Ht 188 cm; Wt 74.4 kg
[~2020-02-15 20:13] MED LIST: ACET325T53 PO; ALBUT2 NEB; ALLA266C2 TP; CLON0.1T14 GT; LACT-209 GT; MERO500V21 IV; PANT40SU2 NG; Prosource GT; VANC1PLA9 IV
--- NOTE | 2020-02-15 20:20 | NUR ---
PT'S TRACH GOT DISLODGED. AAOX3, VSS. RR EVEN & UNLABORED, ABLE TO TALK WITHOUT DIFFICULTY, O2 SAT 93%-94% RA & NABOR WELL. AWAITING EVAL BY ERMD & WILL CONT TO MONITOR. PAGED RT FOR TRACH INSERTION.
--- NOTE | 2020-02-15 20:50 | NUR ---
DR. SCHAEFER @ BS FOR EVAL.
--- NOTE | 2020-02-15 21:29 | NUR ---
[facility] ETA [id number]
--- NOTE | 2020-02-15 22:49 | NUR ---
Patient discharged to SNF in stable condition. Written and verbal after care instructions given. Patient verbalizes understanding of instruction. [facility] [place].
[2020-02-15 22:51] VITALS: BP 130/78
== END 2020-02-15 22:52 ==
LOC: ER 20:17
DX: J95.03 Malfunction of tracheostomy stoma (principal); I11.0 Hypertensive heart disease with heart failure; I50.9 Heart failure, unspecified; I25.2 Old myocardial infarction; K21.9 Gastro-esophageal reflux disease without esophagitis; M19.90 Unspecified osteoarthritis, unspecified site; F41.9 Anxiety disorder, unspecified; F17.200 Nicotine dependence, unspecified, uncomplicated; Z98.890 Other specified postprocedural states; Z59.0 Homelessness; Z79.899 Other long term (current) drug therapy